=== PATIENT | female | born 1955 | race Caucasian/White ===

== ENCOUNTER 2020-11-20 14:40 | Emergency (ER) | payer OTHER, SELFPAY ==
[2020-11-20 15:07] VITALS: BP 123/61; PULSE 88; RESP 18; TEMP 36.3; O2SAT 99; BMI 24.0
[2020-11-20 15:15] LABS: Add Manual Diff / Slide Review NO; Basophils Absolute Auto 100 /uL (0-100); Basophils Percent Auto 0.6 % (0-2); Eosinophils Absolute Auto 0 /uL (0-450); Eosinophils Percent Auto 0.2 % (2-4); Hemoglobin 12.6 g/dL (12.0-16.0); Lymphocytes Absolute Auto 1600 /uL (1100-4500); Lymphocytes Percent Auto 16.5 % (25-40); Mean Corpuscular HGB Conc 34.1 % (30-36); Mean Corpuscular Hemoglobin 32.1 PG (26-34); Mean Corpuscular Volume 94.3 fL (80-100); Monocytes Absolute Auto 400 /uL (0-900); Neutrophils Absolute Auto 7900 /uL (1500-7000); Neutrophils Percent Auto 78.7 % (50-75); Platelet Count 228 X10^3/uL (150-400); Red Blood Cell Count 3.92 X10^6/uL (4.0-5.2); Red Cell Distribution Width 12.9 % (11.6-14.8)
[2020-11-20 15:20] LABS: INR 1.2 (0.9-1.3); Prothrombin Time 13.9 SECONDS (10.1-12.7)
[2020-11-20 15:23] LABS: Alanine Aminotransferase 23 IU/L (<35); Albumin 4.3 g/dL (3.5-5.0); Albumin Globulin Ratio 1.3 (1.0-2.8); Alkaline Phosphatase 64 U/L (38-126); Aspartate Aminotransferase 33 IU/L (14-36); Bilirubin Total 0.6 mg/dL (0.2-1.3); Blood Urea Nitrogen 13 mg/dL (7-17); Calcium 9.3 mg/dL (8.4-10.2); Carbon Dioxide 29 mmol/L (22-32); Chloride 105 mmol/L (98-107); Estimated Glomerular Filt Rate > 60.0 mL/min (>60); Globulin 3.3 g/dL (1.7-4.1); Glucose 153 mg/dL (80-110); HEMOLYSIS < 15 (0-50); Lipase 75 U/L (23-300); PTT Partial Thromboplastin Tim 32 SECONDS (26.4-36.2); Potassium 3.6 mmol/L (3.4-5.1); Sodium 138 mmol/L (137-145); Total Protein 7.6 g/dL (6.3-8.2)
[2020-11-20] MEDS: SODIUM CHLORIDE 0.9% 1,000 ML 1000 ML IV (15:43)
--- NOTE | 2020-11-20 16:04 | ED_ITS ---
HPI - Abdominal Pain General Chief Complaint: Abdominal Pain Stated Complaint: dizzy/throwing up Time Seen by Provider: 11/20/20 16:04 Source: patient and family () Mode of arrival: Ambulatory Limitations: no limitations History of Present Illness HPI narrative: This is a 65-year-old female who developed dizziness which she describes as the ground and room spinning acutely at about 5:00 p.m. yesterday. She states this occurred while she was taking a walk with her granddaughter. She continued to have episodes she developed nausea and vomiting overnight. She states when she would lay down she would often wake up with the room spinning. His proved somewhat today still present. She does notice some change with movement of her head side to side. She has not had any prior episodes in the past she denies headache, no vision changes no facial droop or dysarthria, no issues with speech. No numbness, new weakness or loss of sensation or extremities. She has chronic tingling in her right foot but no new changes. She states the tingling is secondary to prior knee and hip injuries. 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 This was performed at [facility]. Patient denies fevers, chills, no chest pain or shortness of breath, patient denies any urinary symptoms. She had some loose stools overnight but no diarrhea. She denies other medical issues she has not any medications currently. Early other prior surgeries for deviated septum. She is allergic to codeine. No tobacco cage in all alcohol and no illicit. Her primary care is at the Dr. Dominic Newsome Related Data Home Medications Medication Instructions Recorded Confirmed fexofenadine #0 12/29/17 Previous Rx's Medication Instructions Recorded meclizine 25 mg PO TID PRN #14 tab 11/20/20 Allergies Allergy/AdvReac Type Severity Reaction Status Date / Time codeine [CODEINE] Allergy Mild HALLUCINATI Unverified 01/12/18 12:10 ONS Review of Systems Review of Systems ROS Unobtainable: All systems reviewed & are unremarkable except as noted in HPI and below Patient History Surgical History (Updated 11/20/20 @ 16:37 by Maria Eugenia Messina DO) H/O splenectomy Social History (Updated 11/20/20 @ 16:37 by Maria Eugenia Messina DO) Smoking Status: Never smoker alcohol intake: current Smoking Status: Never smoker Substance Use Type: does not use Exam Narrative Exam Narrative: GEN: well nourished, well appearing female, alert and oriented x 3, patient appears to be in mild distress. HEENT: Atraumatic, pupils are equal round reactive to light, extraocular movements are intact with no nystagmus on the EOMI appreciated, patient has very faint rotatory nystagmus on the left with Silex-Hallpike maneuver and mild symptoms, nares are clear, TMs are clear with no fluid, there is no conjunctival pallor. Throat is clear without any exudates, erythema, tonsillar enlargement or uvular deviation, no facial droop. HEART: Regular rate and rhythm without murmur, clicks, rubs. Pulses are equal in upper and lower extremities LUNGS:Lungs clear to auscultation, no wheezes, rales, crackles, chest moves symmetrically ABD:bowel sounds normal, soft, non-tender, no guarding, rebound, rigidity, no masses noted, no hepatosplenomegaly, nondistended, no bruit or pulsatile mass. :No CVA tenderness MSCL: Non-tender, no muscle atrophy, muscles strength 5/5 upper and lower extremities, full range of motion, normal gait NEURO:CN 2-12 intact, sensation normal, lqyzev-[id number] normal bilaterally, heel-edwards normal bilaterally. SKIN: no rash, no erythema or other skin changes noted. Initial Vital Signs Initial Vital Signs: Vital Signs Temperature 97.4 F L 11/20/20 15:07 Pulse Rate 88 11/20/20 15:07 Respiratory Rate 18 11/20/20 15:07 Blood Pressure 123/61 11/20/20 15:07 Pulse Oximetry 99 11/20/20 15:07 Scores NIH Stroke Scale Level of Conciousness: Alert, keenly responsive Ask month/age: Answers both questions correctly. Open/close eyes, close hand: Performs both tasks correctly Best gaze horizontal: Normal Visual conti: No visual loss Facial palsy: Normal symetrical movement Left arm drift: No drift for full 10 sec Right arm drift: No drift for full 10 sec Left leg drift: No drift for full 5 sec Right leg drift: No drift for full 5 sec Limb ataxia: Absent Sensory on face/arms/legs: Normal, no sensory loss Best language: No aphasia, normal Dysarthria: Normal Extinction or inattention: No abnormality Total NIH Stroke scale score: 0 Course Orders Ordered: ED Orders 11/20/20 14:55 EKG-12 Lead Stat 11/20/20 15:00 Complete Blood Count AUTO DIFF Stat Comprehensive Metabolic Panel Stat Lipase Stat Partial Thromboplastin Time Stat Prothrombin Time INR Stat 11/20/20 16:32 CT angio head and neck Stat US abdomen complete Stat Discontinued Medications Sodium Chloride (Normal Saline 0.9%) 1,000 mls @ 1,000 mls/hr IV BOLUS ONE Stop: 11/20/20 16:27 Last Infusion: 11/20/20 16:39 Dose: 0 mls/hr Documented by: Admin: 11/20/20 15:43 Dose: 1,000 mls/hr Documented by: GRETCHEN Meclizine HCl (Meclizine Hcl 12.5 Mg Tablet) 50 mg PO NOW ONE Stop: 11/20/20 16:34 Last Admin: 11/20/20 16:57 Dose: 50 mg Documented by: GRETCHEN Ondansetron HCl (Ondansetron 4 Mg/2 Ml Inj) 4 mg IV NOW ONE Stop: 11/20/20 16:34 Last Admin: 11/20/20 16:42 Dose: 4 mg Documented by: GRETCHEN Reevaluation(s) Reevaluation #1: patient continues to feel better. reviewed labs, imaging and recommendations from neurology. Patient and both present. Time: 18:48 Consultations Consultation #1: Dr. Sharpe with neurology, reviewed imaging. Recommends follow up with nonemergent neurosurgery for aneurysm but feels unlikely cause of vertigo today. No neurologic symptoms otherwise with NIH of 0. Time: 18:40 Vital Signs Vital signs: Vital Signs - 8 hr 11/20/20 15:07 11/20/20 16:18 11/20/20 16:30 Temperature 97.4 F L Pulse Rate 88 77 79 Respiratory Rate 18 22 22 Blood Pressure 123/61 Pulse Oximetry 99 100 99 11/20/20 17:00 11/20/20 17:30 11/20/20 18:00 Temperature Pulse Rate 82 74 79 Respiratory Rate 22 11 L Blood Pressure 123/70 Pulse Oximetry 100 100 100 MDM - Abdominal Pain Lab Data Attestation: I reviewed the patient's lab results. Result diagrams: 11/20/20 15:00 11/20/20 15:00 Labs: Lab Results 11/20/20 11/20/20 11/20/20 Range/Units 15:00 15:00 15:00 WBC 10.0 (4.5-11.0) X10^3/uL RBC 3.92 L (4.0-5.2) X10^6/uL Hgb 12.6 (12.0-16.0) g/dL Hct 37.0 (36-46) % MCV 94.3 (80-100) fL MCH 32.1 (26-34) PG MCHC 34.1 (30-36) % RDW 12.9 (11.6-14.8) % Plt Count 228 (150-400) X10^3/uL Neut % (Auto) 78.7 H (50-75) % Lymph % (Auto) 16.5 L (25-40) % [place] % (Auto) 4.0 (3-14) % Eos % (Auto) 0.2 L (2-4) % Baso % (Auto) 0.6 (0-2) % Neut # (Auto) 7900 H (8227-8970) /uL Lymph # (Auto) 1600 (7514-5555) /uL [place] # (Auto) 400 (0-900) /uL Eos # (Auto) 0 (0-450) /uL Baso # (Auto) 100 (0-100) /uL PT 13.9 H (10.1-12.7) SECONDS INR 1.2 (0.9-1.3) APTT 32 (26.4-36.2) SECONDS Sodium 138 (137-145) mmol/L Potassium 3.6 (3.4-5.1) mmol/L Chloride 105 (98-107) mmol/L Carbon Dioxide 29 (22-32) mmol/L BUN 13 (7-17) mg/dL Creatinine 0.62 (0.52-1.04) mg/dL Estimated GFR > 60.0 (>60) mL/min BUN/Creatinine Ratio 21.0 (6-22) Glucose 153 H (80-110) mg/dL Calcium 9.3 (8.4-10.2) mg/dL Total Bilirubin 0.6 (0.2-1.3) mg/dL AST 33 (14-36) IU/L ALT 23 (<35) IU/L Alkaline Phosphatase 64 (38-126) U/L Total Protein 7.6 (6.3-8.2) g/dL Albumin 4.3 (3.5-5.0) g/dL Globulin 3.3 (1.7-4.1) g/dL Albumin/Globulin Ratio 1.3 (1.0-2.8) Lipase 75 (23-300) U/L Point of care testing: Urine Dip Bedside Urine Glucose Negative Bedside Urine Bilirubin - Negative Bedside Urine Ketone - Negative Urine Specific [place] 1.010 Bedside Urine Occult Blood - Negative Bedside Urine Protein - Negative Bedside Urine Urobilinogen - Negative Bedside Urine Nitrite - Negative Bedside Urine Leukocytes - Negative Esterase Imaging Data US - abdomen: Radiologist's Impression: [address] [id number] ReportSigned Patient: Emmy Tran [facility]#: [id number]: 1955cct:[id number]/Sex: 65 / FDate of Service: 11/20/20Loc: EDAccession Number: [id number] Procedure: US abdomen complete Ordering Provider: Maria Eugenia Messina D.O. PROCEDURE: US ABDOMEN COMPLETE INDICATIONS: abdominal pain, vomiting, hx of pancreatic tumor TECHNIQUE: Real-time scanning was performed of the abdominal and retroperitoneal organs, with image documentation. COMPARISON: [facility], CT, CT ANGIO HEAD AND NECK, 11/20/2020, 16:37. FINDINGS: Liver: Liver is normal in size and homogeneous in echotexture. Normal appearing, hepatopetal flow can be seen within the main portal vein. Gallbladder: No findings of gallstones or sludge are seen. The gallbladder wall is not thickened, measuring 3 mm or less. No specific pericholecystic fluid is seen. The sonographic Kapadia sign is negative. Biliary ducts: Intrahepatic bile ducts are non-dilated. Extrahepatic bile duct caliber measures 2-3 mm. Normal is 6-7 mm or less in diameter, or 10 mm or less post-cholecystectomy. Pancreas: Not well seen. Spleen: The spleen is small in size measuring 4.6 cm. Kidneys: Kidneys are normal in size and echotexture. Right kidney measures 11.5 cm long; left kidney measures 11.7 cm long. No hydronephrosis or nephrolithiasis. No solid masses. Aorta: Visualized aorta is normal in caliber at less than 3 cm. Iliacs: Proximal common iliac arteries are normal in caliber at less than 2.5 cm. IVC: Intrahepatic inferior vena cava is patent. Miscellaneous: No free abdominal fluid. IMPRESSION: Poor visualization of the pancreas. The gallbladder demonstrates a normal sonographic appearance. No biliary dilatation is seen. Dictated by: Rocky Alfaro M.D. on 11/20/2020 at 17:25 Approved by: Rocky Alfaro M.D. on 11/20/2020 at 17: CTA - brain/neck: Radiologist's Impression: [address] [id number] Scan ReportSigned Patient: Emmy Tran MMR#: [id number]: 1955cct:[id number]/Sex: 65 / FDate of Service: 11/20/20Loc: EDAccession Number: [id number] Procedure: CT angio head and neck Ordering Provider: Maria Eugenia Messina D.O. PROCEDURE: CT ANGIO HEAD AND NECK INDICATIONS: acute onset vertigo yesterday TECHNIQUE: Pre -contrast 4.5 mm thick sections acquired from the foramen magnum to the vertex. After the administration of intravenous contrast, 1 mm thick sections acquired from the aortic arch through the [place] of [place]. Post-contrast 4.5 mm thick sections then re-acquired from the foramen magnum to the vertex. 3-dimensional dympyju-gndezfitp-wrcqxnxqok (MIP) and/or volume rendering reformats were acquired of the central intracranial vasculature and neck separately. COMPARISON: None. FINDINGS: Image quality: Excellent. BRAIN: CSF spaces: Ventricles are normal in size and shape. Basal cisterns are patent. No extra-axial fluid collections. Brain: No midline shift. No acute intracranial hemorrhage or mass effect. Recio-white matter interface appears intact. Skull and face: Calvarium and facial bones appear intact, without suspicious lesions. Orbits appear normal. Sinuses: Sinuses and mastoids are clear. HEAD CT ANGIOGRAPHY: Anterior circulation: Mild atherosclerotic calcifications are seen in the intracranial portions of the internal carotid arteries bilaterally without hemodynamically significant stenosis. There is a 5 x 6 x 5 mm aneurysm in the supraclinoid portion of the left ICA directed posteriorly (image 68 of series 18 and image 78 of series 9). There is a suspected tiny 2 mm aneurysm arising from the right supraclinoid ICA directed posterior medially (image 80 of series 9, and image 84 series 18). The flow within the paired anterior cerebral arteries is normal and symmetric. The flow within the middle cerebral arteries is normal and symmetric. The anterior communicating artery is seen. Posterior circulation: Visualized portions of the vertebral arteries demonstrate normal caliber, and join to form a normal appearing basilar artery. Diminutive P1 segments of the posterior cerebral arteries are seen bilaterally with large posterior communicating arteries on both sides. Flow within the posterior cerebral arteries is normal and symmetric. No aneurysms are seen. NECK CT ANGIOGRAPHY: Carotid system: The great vessels demonstrate a conventional anatomy as they arise from the aortic arch. The origins of the common carotid arteries appear patent. The common carotid arteries demonstrate normal caliber and courses. The bifurcation regions are both widely patent. The internal carotid arteries demonstrate normal calibers and courses. Posterior circulation: The origins of the vertebral arteries both appear widely patent. The more superior extracranial portions of both vertebral arteries also demonstrate normal courses and calibers. They join to form a normal appearing basilar artery. Soft tissues: A 1.3 cm nodule is seen in the left lobe of the thyroid. Visualized neck soft tissues otherwise demonstrate no suspicious abnormalities. Bones: No suspicious bony lesions. Visualized cervical spine appears normally aligned. IMPRESSION: 1. No acute intracranial hemorrhage or focal edema. 2. No hemodynamically significant arterial stenosis or occlusion. 3. Left supraclinoid ICA 5 mm aneurysm. 4. Suspected 2 mm aneurysm arising from the right supraclinoid ICA. Any quantitative measurements of stenosis were performed using NASCET criteria. Dictated by: Eusebio Landon M.D. on 11/20/2020 at 17:08 Approved by: Eusebio Landon M.D. on 11/20/2020 at 17:23 ECG Data Attestation: I personally reviewed and interpreted this ECG as follows: Interpretation: Sinus rhythm with sinus arrhythmia, rate 84 P are 154 QRS is 74 and QTC of 460. New ST elevation depression appreciated. MDM Narrative Medical decision making narrative: This is a 65-year-old female comes emergency department with vertigo like symptoms that started yesterday afternoon/evening while she was out for a walk with her granddaughter. Patient's neurologic exam is normal. She does have some very subtle rotatory nystagmus but this is quite subtle on the left side. CT imaging was obtained she has also had some nausea and vomiting overnight developed a little bit of abdominal pain with a history of pancreatic tumor. Patient's labs do not show acute changes that would describe the cause of her symptoms. Her abdominal imaging visualization of the pancreas but no other concerning changes and no masses appreciated on imaging. CTA is significant for a 5 mm aneurysm at the left supraclinoid ICA and a suspected 2 mm aneurysm from the right supraclinoid ICA there is no sign of acute hemorrhage, focal edema, arterial stenosis or occlusion. Suspect this may be an incidental finding but was discussed with Neurology is a potential source of her vertigo. [place] that this was unlikely cause and not felt to need emergent intervetion of aneurysm. We did discuss possibility of stroke but this also seems less likely with an otherwise normal neurologic exam which was the reason why CT angiography was initially ordered. Discussed at length with patient and her recommended follow-up with neuro surgery for evaluation and intervention as needed. We did discuss return precautions and patient is to have a low threshold. Did ask her to have short-term follow-up with her primary care. All questions were answered. Patient was also given a disc with her CTA images for follow up. Discharge Plan Departure Patient Disposition: Home Clinical Impression: Vertigo, Aneurysm Instructions: DI for Vertigo Activity Restrictions/Additional Instructions: Follow-up with your physician next 2-3 days for recheck. Call in the morning for follow up. Your imaging today did show a aneurysm that is 5 mm and a 2nd possible aneurysm that is 2 mm at the left and right supraclinoid ICA. These should be followed up with neurosurgery they may wish to monitor them versus repair/intervene. I did discuss your findings today with Neurology and it is felt this is not a likely cause of your vertigo today and is likely a incidental finding. You have been given a CD with your CT angiogram images on it, keep this with you and take to future appointments. If you continue to have vertigo symptoms but they are mild to moderate you can follow-up with ENT. You may take meclizine 1-2 tablets every 8 hours as needed for vertigo symptoms. If you develop fevers, sudden severe headaches, vision changes, difficulty with speech, movement, facial droop, passing out, persistent vomiting or other new or concerning symptoms return to the emergency department immediately. Prescriptions: New meclizine 25 mg tablet,chewable 25 mg PO TID PRN (Reason: motion sickness) Qty: 14 RF: 0 No Action fexofenadine 180 MG tablet Qty: 0 RF: 0 Referrals: Laureen Acuna MD [Primary Care Provider] -
[2020-11-20 16:18] VITALS: PULSE 77; RESP 22; O2SAT 100
[2020-11-20 16:30] VITALS: PULSE 79; RESP 22; O2SAT 99
--- NOTE | 2020-11-20 16:32 | DI.US.S_ITS ---
PROCEDURE: US ABDOMEN COMPLETE INDICATIONS: abdominal pain, vomiting, hx of pancreatic tumor TECHNIQUE: Real-time scanning was performed of the abdominal and retroperitoneal organs, with image documentation. COMPARISON: [facility], CT, CT ANGIO HEAD AND NECK, 11/20/2020, 16:37. FINDINGS: Liver: Liver is normal in size and homogeneous in echotexture. Normal appearing, hepatopetal flow can be seen within the main portal vein. Gallbladder: No findings of gallstones or sludge are seen. The gallbladder wall is not thickened, measuring 3 mm or less. No specific pericholecystic fluid is seen. The sonographic Kapadia sign is negative. Biliary ducts: Intrahepatic bile ducts are non-dilated. Extrahepatic bile duct caliber measures 2-3 mm. Normal is 6-7 mm or less in diameter, or 10 mm or less post-cholecystectomy. Pancreas: Not well seen. Spleen: The spleen is small in size measuring 4.6 cm. Kidneys: Kidneys are normal in size and echotexture. Right kidney measures 11.5 cm long; left kidney measures 11.7 cm long. No hydronephrosis or nephrolithiasis. No solid masses. Aorta: Visualized aorta is normal in caliber at less than 3 cm. Iliacs: Proximal common iliac arteries are normal in caliber at less than 2.5 cm. IVC: Intrahepatic inferior vena cava is patent. Miscellaneous: No free abdominal fluid. IMPRESSION: Poor visualization of the pancreas. The gallbladder demonstrates a normal sonographic appearance. No biliary dilatation is seen. Dictated by: Rocky Alfaro M.D. on 11/20/2020 at 17:25 Approved by: Rocky Alfaro M.D. on 11/20/2020 at 17:26
--- NOTE | 2020-11-20 16:32 | DI.CT.S_ITS ---
PROCEDURE: CT ANGIO HEAD AND NECK INDICATIONS: acute onset vertigo yesterday TECHNIQUE: Pre -contrast 4.5 mm thick sections acquired from the foramen magnum to the vertex. After the administration of intravenous contrast, 1 mm thick sections acquired from the aortic arch through the [place] of [place]. Post-contrast 4.5 mm thick sections then re-acquired from the foramen magnum to the vertex. 3-dimensional qeszyyj-pamvohxzv-iccjqgxizu (MIP) and/or volume rendering reformats were acquired of the central intracranial vasculature and neck separately. COMPARISON: None. FINDINGS: Image quality: Excellent. BRAIN: CSF spaces: Ventricles are normal in size and shape. Basal cisterns are patent. No extra-axial fluid collections. Brain: No midline shift. No acute intracranial hemorrhage or mass effect. Recio-white matter interface appears intact. Skull and face: Calvarium and facial bones appear intact, without suspicious lesions. Orbits appear normal. Sinuses: Sinuses and mastoids are clear. HEAD CT ANGIOGRAPHY: Anterior circulation: Mild atherosclerotic calcifications are seen in the intracranial portions of the internal carotid arteries bilaterally without hemodynamically significant stenosis. There is a 5 x 6 x 5 mm aneurysm in the supraclinoid portion of the left ICA directed posteriorly (image 68 of series 18 and image 78 of series 9). There is a suspected tiny 2 mm aneurysm arising from the right supraclinoid ICA directed posterior medially (image 80 of series 9, and image 84 series 18). The flow within the paired anterior cerebral arteries is normal and symmetric. The flow within the middle cerebral arteries is normal and symmetric. The anterior communicating artery is seen. Posterior circulation: Visualized portions of the vertebral arteries demonstrate normal caliber, and join to form a normal appearing basilar artery. Diminutive P1 segments of the posterior cerebral arteries are seen bilaterally with large posterior communicating arteries on both sides. Flow within the posterior cerebral arteries is normal and symmetric. No aneurysms are seen. NECK CT ANGIOGRAPHY: Carotid system: The great vessels demonstrate a conventional anatomy as they arise from the aortic arch. The origins of the common carotid arteries appear patent. The common carotid arteries demonstrate normal caliber and courses. The bifurcation regions are both widely patent. The internal carotid arteries demonstrate normal calibers and courses. Posterior circulation: The origins of the vertebral arteries both appear widely patent. The more superior extracranial portions of both vertebral arteries also demonstrate normal courses and calibers. They join to form a normal appearing basilar artery. Soft tissues: A 1.3 cm nodule is seen in the left lobe of the thyroid. Visualized neck soft tissues otherwise demonstrate no suspicious abnormalities. Bones: No suspicious bony lesions. Visualized cervical spine appears normally aligned. IMPRESSION: 1. No acute intracranial hemorrhage or focal edema. 2. No hemodynamically significant arterial stenosis or occlusion. 3. Left supraclinoid ICA 5 mm aneurysm. 4. Suspected 2 mm aneurysm arising from the right supraclinoid ICA. Any quantitative measurements of stenosis were performed using NASCET criteria. Dictated by: Euesbio Landon M.D. on 11/20/2020 at 17:08 Approved by: Eusebio Landon M.D. on 11/20/2020 at 17:23
[2020-11-20] MEDS: ONDANSETRON 4 MG/2 ML INJ IV (16:42)
[2020-11-20] MEDS: MECLIZINE HCL 12.5 MG TABLET 50 MG PO (16:57)
[2020-11-20 17:00] VITALS: PULSE 82; RESP 22; O2SAT 100
[2020-11-20 17:30] VITALS: PULSE 74; O2SAT 100
[2020-11-20 18:00] VITALS: BP 123/70; PULSE 79; RESP 11; O2SAT 100
== END 2020-11-20 18:57 | disposition home or self-care (01) ==
PROVIDERS: Emergency Provider Emergency Medicine; Family Provider Internal Medicine; PCP Internal Medicine
DX: I67.1 Cerebral aneurysm, nonruptured (principal); R42 Dizziness and giddiness; R11.2 Nausea with vomiting, unspecified; R10.9 Unspecified abdominal pain
CPT/HCPCS: 36415; 70496; 70498; 76700; 80053; 81003; 83690; 85025; 85610; 85730; 93005; 93010; 96361; 96374; 99284; J2405; Q9967

== ENCOUNTER → 2020-12-20 10:57 | Outpatient (CLI) | payer OTHER, SELFPAY ==
--- NOTE | 2020-12-20 | DI.MG.S_ITS ---
BILATERAL DIGITAL SCREENING MAMMOGRAM 3D/2D WITH CAD: 12/20/2020 CLINICAL: Routine screening. Comparison is made to exams dated: 07/14/2016 mammogram, 08/09/2017 mammogram, and 08/30/2018 mammogram - [facility]. There are scattered fibroglandular elements in both breasts. Current study was also evaluated with a Computer Aided Detection (CAD) system. No significant masses, calcifications, or other findings are seen in either breast. There has been no significant interval change. IMPRESSION: NEGATIVE There is no mammographic evidence of malignancy. A 1 year screening mammogram is recommended. This exam was interpreted at Station ID: [id number]. NOTE: For mammograms, a report in lay terms will be sent to the patient. Approximately 15% of breast malignancies will not be visualized mammographically. In the management of a palpable breast mass, a negative mammogram must not discourage biopsy of a clinically suspicious lesion. Electronically Signed By: Go Lares M.D., jr/lavonne:12/20/2020 11:19:18 letter sent: Normal Exam ACR BI-RADS Category 1: Negative [id number]
== END ==
PROVIDERS: Family Provider Internal Medicine; PCP Internal Medicine; Referring Provider Internal Medicine; Visit Provider Internal Medicine
DX: Z12.31 Encounter for screening mammogram for malignant neoplasm of breast (principal)
CPT/HCPCS: 77063; 77067

== ENCOUNTER → 2021-03-29 10:11 | Outpatient (CLI) | payer OTHER, SELFPAY ==
[2021-03-29 11:49] LABS: COVID-19 CEPHEID PCR (VTM/NP) Negative (Negative)
== END ==
PROVIDERS: Family Provider Internal Medicine; PCP Internal Medicine; Referring Provider Physician Assistant; Visit Provider Physician Assistant
DX: Z20.822 Contact with and (suspected) exposure to COVID-19 (principal)
CPT/HCPCS: U0003

== ENCOUNTER → 2021-04-19 10:25 | Outpatient (CLI) | payer OTHER, SELFPAY ==
[2021-04-19 12:29] LABS: COVID19 - ADMIT (NP swab/PCR) Negative (Negative)
== END ==
PROVIDERS: Family Provider Internal Medicine; PCP Internal Medicine; Visit Provider Physician Assistant
DX: Z20.822 Contact with and (suspected) exposure to COVID-19 (principal)
CPT/HCPCS: U0003

== ENCOUNTER → 2022-03-20 09:37 | Outpatient (CLI) | payer OTHER, SELFPAY ==
--- NOTE | 2022-03-20 | DI.MRI.S_ITS ---
PROCEDURE: MR ANGIO HEAD WO CON INDICATIONS: Cerebral aneurysm, nonruptured TECHNIQUE: Noncontrast axial 3-D akuc-[id number]-[id number] MR angiogram, with 3-dimensional maximum intensity projection (MIP) reformats of the internal carotid arteries and posterior circulation then performed. COMPARISON: [facility], CT, CT ANGIO HEAD AND NECK, 11/20/2020, 16:37. FINDINGS: Image quality: Irregular artifact and signal dropout in the distal cavernous segments of both internal carotid arteries may be related to slow flow, [id number]-ce-[id number] artifact, or treatment related artifact, if any history exists Anterior circulation: Artifact in the cavernous ICA limits assessment. The previously described aneurysm in the left supraclinoid ICA is not well demonstrated on the current exam. 2 mm aneurysm in the right supraclinoid ICA is not demonstrated as well. Anterior and middle cerebral arteries unremarkable Posterior circulation: Visualized portions of the vertebral arteries demonstrate normal caliber, and join to form a normal appearing basilar artery. The flow within the posterior cerebral arteries is normal and symmetric. No stenoses, occlusions, or aneurysms. IMPRESSION: Limited exam related to artifact obscuring the anterior portions of both internal carotid arteries, possibly related to stenting or aneurysm coil, if any history exists. Consider follow-up CT angiogram Previously described aneurysms not currently visualized, given artifact Approved by: Luis Miguel Fong M.D. on 03/20/2022 at 11:19
== END ==
PROVIDERS: Family Provider Internal Medicine; PCP Internal Medicine; Referring Provider Psychiatry & Neurology Neurology; Visit Provider Psychiatry & Neurology Neurology
DX: I67.1 Cerebral aneurysm, nonruptured (principal)
CPT/HCPCS: 70544

== ENCOUNTER → 2022-10-23 07:50 | Outpatient (CLI) | payer MEDICARE, OTHER, SELFPAY ==
[2022-10-23 08:39] LABS: Add Manual Diff / Slide Review NO; Basophils Absolute Auto 100 /uL (0-100); Basophils Percent Auto 1.1 % (0-2); Eosinophils Absolute Auto 200 /uL (0-450); Eosinophils Percent Auto 2.8 % (2-4); Hematocrit 37.6 % (36-46); Hemoglobin 12.7 g/dL (12.0-16.0); Lymphocytes Absolute Auto 2200 /uL (1100-4500); Lymphocytes Percent Auto 38.4 % (25-40); Mean Corpuscular HGB Conc 33.7 % (30-36); Mean Corpuscular Hemoglobin 32.1 PG (26-34); Mean Corpuscular Volume 95.2 fL (80-100); Monocytes Absolute Auto 600 /uL (0-900); Neutrophils Absolute Auto 2800 /uL (1500-7000); Neutrophils Percent Auto 47.7 % (50-75); Platelet Count 270 X10^3/uL (150-400); Red Blood Cell Count 3.95 X10^6/uL (4.0-5.2); Red Cell Distribution Width 13.5 % (11.6-14.8); White Blood Cell Count 5.8 X10^3/uL (4.5-11.0)
[2022-10-23 09:04] LABS: HEMOLYSIS < 15 (0-50); Iron 134 ug/dL (37-170)
[2022-10-23 09:09] LABS: Alanine Aminotransferase 22 IU/L (<35); Alkaline Phosphatase 55 U/L (38-126); Aspartate Aminotransferase 30 IU/L (14-36); BUN Creatinine Ratio 20.5 (6-22); Bilirubin Total 0.9 mg/dL (0.2-1.3); Blood Urea Nitrogen 16 mg/dL (7-17); Carbon Dioxide 27 mmol/L (22-32); Chloride 104 mmol/L (98-107); Cholesterol 242 mg/dL (140-199); Estimated Glomerular Filt Rate > 60 mL/min (>60); Glucose 99 mg/dL (80-110); HDL Cholesterol 40 mg/dL (40-60); HEMOLYSIS < 15 (0-50); LDL Cholesterol Calculated 179 mg/dL (<100); Potassium 4.2 mmol/L (3.4-5.1); Sodium 140 mmol/L (137-145); Triglycerides 115 mg/dL (35-150)
[2022-10-23 09:16] LABS: Percent Iron Saturation 51 % (15-50); Total Iron Binding Capacity 262 ug/dL (265-497); Transferrin 204 mg/dL (206-381)
[2022-10-23 09:23] LABS: Free T3, Triiodothyronine Free 3.83 pg/mL (2.77-5.27); Free T4, Direct Thyroxine 0.93 ng/dL (0.78-2.19)
[2022-10-23 09:42] LABS: Ferritin 78 ng/mL (11-264)
[2022-10-23 09:57] LABS: HIV 1 & 2 Ab/Ag 4th Gen Combo NEGATIVE (NEGATIVE); Hep C Virus Ab w/Reflex Quant NEGATIVE s/c (NEGATIVE)
[2022-10-23 19:40] LABS: Albumin 4.1 g/dL (3.5-5.0); Albumin Globulin Ratio 1.1 (1.0-2.8); Globulin 3.9 g/dL (1.7-4.1)
[2022-10-24 08:08] LABS: Hepatitis BE Antigen Negative (Negative)
== END ==
PROVIDERS: Family Provider Internal Medicine; PCP Family Medicine; Referring Provider Family Medicine; Visit Provider Family Medicine
DX: R53.83 Other fatigue; L65.9 Nonscarring hair loss, unspecified; Z11.4 Encounter for screening for human immunodeficiency virus [HIV]; Z11.59 Encounter for screening for other viral diseases; Z13.220 Encounter for screening for lipoid disorders; Z90.81 Acquired absence of spleen; D64.9 Anemia, unspecified; E55.9 Vitamin D deficiency, unspecified; E78.5 Hyperlipidemia, unspecified
CPT/HCPCS: 36415; 80053; 80061; 82728; 83540; 83550; 84439; 84443; 84481; 85025; 86803; 87350; 87389

== ENCOUNTER → 2023-01-07 12:11 | Outpatient (CLI) | payer MEDICARE, OTHER, SELFPAY ==
--- NOTE | 2023-01-07 | DI.CT.S_ITS ---
PROCEDURE: CT SINUS SCREEN WO CON INDICATIONS: SINUSITIS/PANSINUSITIS TECHNIQUE: Noncontrast 3.0 mm axial images acquired from the frontal sinuses to the mid-sella, with coronal and sagittal reformats. For radiation dose reduction, the following was used: automated exposure control, adjustment of mA and/or kV according to patient size. COMPARISON: [facility], CT, CT ANGIO HEAD AND NECK, 11/20/2020, 16:37. [facility], MR, MR ANGIO HEAD WO CON, 03/20/2022, 9:51. FINDINGS: Image quality: The inferior-most aspect of the right maxillary sinus is not included within the field of view of this study. Maxillary Sinuses: No bony remodeling or destruction. There is minimal mucosal thickening seen involving the inferior maxillary sinuses. Ethmoid Air Cells: No bony remodeling or destruction. Sinuses are clear. Sphenoid Sinuses: No bony remodeling or destruction. Sinuses are clear. Frontal Sinuses: No bony remodeling or destruction. Sinuses are clear. Ostiomeatal Complexes: The ostiomeatal complexes are patent, yet they are constitutionally narrowed, with bilateral Doyle cells. Miscellaneous: Visualized intra-orbital contents are normal. There is a right-sided viry bullosa. There is mild leftward nasal septal deviation. Bilateral intracranial internal carotid artery stents are present. IMPRESSION: Minimal mucosal thickening is seen involving the inferior maxillary sinuses. The ostiomeatal complexes are patent, yet they are constitutionally narrowed, with bilateral Doyle cells. Additional findings: Bilateral intracranial internal carotid artery stents Right viry bullosa Mild rightward nasal septal deviation. (Please note that the inferior most aspect of the left maxillary sinus is not included within the field of view of this study. If it would be clinically helpful to image this area, please return this patient to Radiology for additional imaging, which would be performed at no additional charge to this patient. If additional imaging is performed, an addendum will be issued to this report.) Dictated by: Rocky Alfaro M.D. on 01/07/2023 at 12:26 Approved by: Rocky Alfaro M.D. on 01/07/2023 at 12:30
--- NOTE | 2023-01-07 12:13 | DI.MG.S_ITS ---
BILATERAL DIGITAL SCREENING MAMMOGRAM 3D/2D WITH CAD: 01/07/2023 CLINICAL: Routine screening. Comparison is made to exams dated: 12/20/2020 mammogram - [facility], 08/30/2018 mammogram, and 08/09/2017 mammogram - [facility]. There are scattered areas of fibroglandular density in both breasts (category b / 25%-50% glandular tissue). Current study was also evaluated with a Computer Aided Detection (CAD) system. No significant masses, calcifications, or other findings are seen in either breast. There has been no significant interval change. IMPRESSION: NEGATIVE There is no mammographic evidence of malignancy. A 1 year screening mammogram is recommended. Based on the Tyrer Cuzick model (a risk assessment model) the patient's lifetime risk is 6.7% and her 10 year risk is 3.2%. According to the ACR, ACS, and NCCN guidelines, an annual breast MRI exam along with mammogram is recommended if the patient's lifetime risk is 20% or greater. This exam was interpreted at Station ID: [id number]. NOTE: For mammograms, a report in lay terms will be sent to the patient. Approximately 15% of breast malignancies will not be visualized mammographically. In the management of a palpable breast mass, a negative mammogram must not discourage biopsy of a clinically suspicious lesion. Electronically Signed By: Nain wheat/lavonne:01/07/2023 15:59:17 letter sent: Normal Exam ACR BI-RADS Category 1: Negative 3341F
--- NOTE | 2023-01-07 12:48 | DI.DEXA.S_ITS ---
Bone Density Report Name: DOUG FALCON Age: 67 Sex: Female Ethnicity: White Date of : 1955 Indication: osteopenia; Referring Provider: RAINER KOCH Study: Bone densitometry was performed. Exam Date: January 07, 2023 Accession number: [id number] Bone Density: Region BMD T-score Z-score Classification AP Spine(L1, L3, L4) 0.710 -3.1 -1.3 Osteoporosis Femoral Neck (Left) 0.593 -2.3 -0.8 Osteopenia Total Hip (Left) 0.787 -1.3 0.0 Osteopenia Femoral Neck (Right) 0.588 -2.4 -0.8 Osteopenia Total Hip (Right) 0.767 -1.4 -0.2 Osteopenia Total Hip Mean 0.777 -1.4 -0.1 Osteopenia World Health Organization criteria for BMD impression classify patients as: Normal (T-score at or above -1.0), Osteopenia (T-score between -1.0 and -2.5), or Osteoporosis (T-score at or below -2.5). 10-year Fracture Risk: FRAX not reported because: Some T-score for Spine Total or Hip Total or Femoral Neck at or below -2.5 Previous Exams: -- Region Exam Age BMD T-score BMD Change BMD Change Date g/cm2 vs Baseline vs Previous -- AP Spine (L1,L3-L4) 01/07/2023 67 0.710 -3.1 -0.097 (-12.0%)# -0.097 (-12.0%)# 05/13/2015 59 0.807 -2.2 Total Hip(Left) 01/07/2023 67 0.787 -1.3 -0.084 (-9.7%)# -0.084 (-9.7%)# 05/13/2015 59 0.871 -0.6 Total Hip(Right) 01/07/2023 67 0.767 -1.4 -0.108 (-12.3%)# -0.108 (-12.3%)# 05/13/2015 59 0.875 -0.5 -- *Denotes significance at 95% confidence level, LSC for AP Spine = 0.022 g/cm2, LSC for Total Hip = 0.027 g/cm2 # Denotes dissimilar scan types or analysis methods Impression: The patient has osteoporosis, based on the Total Spine T-score. No significant bone loss was observed. Discussion: INCREASED RISK OF FRACTURE. BONE DENSITY IS UNDESIRABLY LOW AT ONE OR MORE SKELETAL SITES, CONSISTENT WITH POSTMENOPAUSAL OSTEOPOROSIS. This patient's lowest T-score meets the World Health Organization's (WHO) criteria for osteoporosis at one or more sites (T-score -2.5 or below). In untreated patients, the risk of osteoporotic fracture increases approximately two-fold for each 1.0 SD decrease in T-score. Low bone density is not the only risk factor for fracture; also consider factors such as patient's age, frailty or poor health, risk of falling, risk of injury, previous osteoporotic fracture, family history of osteoporosis, cigarette smoking, low body weight, etc. Not everyone with low bone mineral density has osteoporosis; osteomalacia and other metabolic bone disorders should also be considered. Patients who have osteoporosis should be evaluated for specific diseases and conditions (secondary causes) that may cause or contribute to bone loss. The [place] [employer] Clinical Endocrinologists (AACE) and National Osteoporosis Foundation (NOF) recommend pharmacologic intervention for all postmenopausal women whose T-score is in this range. The patient should follow a healthful lifestyle (good nutrition with adequate calcium and vitamin D, and appropriate weight-bearing exercise). Follow-Up: Consider a repeat BMD and Vertebral Fracture Assessment (VFA) exam in 2 years or sooner if medically necessary, to reassess this patient's status. Reported by: KATIE JERRY M.D. on 01/07/2023 1:06:00 PM.
== END ==
PROVIDERS: Family Provider Internal Medicine; PCP Family Medicine; Referring Provider Family Medicine; Visit Provider Family Medicine
DX: Z12.31 Encounter for screening mammogram for malignant neoplasm of breast (principal); J01.91 Acute recurrent sinusitis, unspecified; J32.4 Chronic pansinusitis; J34.2 Deviated nasal septum; J34.3 Hypertrophy of nasal turbinates; M81.0 Age-related osteoporosis without current pathological fracture; Z78.0 Asymptomatic menopausal state; Z95.828 Presence of other vascular implants and grafts; Z90.81 Acquired absence of spleen
CPT/HCPCS: 70486; 77063; 77067; 77080

== ENCOUNTER 2023-04-14 10:29 | Day surgery (SDC) | payer MEDICARE, OTHER, SELFPAY ==
--- NOTE | 2023-04-14 | PATH_ITS ---
[facility] Accession Number: [id number] No. of containers..02 Tissue . 01 Material submitted: . PART A: colon - CECUM PART B: colon - 60 . 01 Diagnosis: A. Cecum, Biopsy: Tubular adenoma. . B. Colon, 60, Biopsy: Colonic mucosa with mild active inflammation and reactive epithelial and stromal changes suggestive of healed/healing erosion. Additional levels were examined. Negative for dysplasia and malignancy. MRV 04/22/2023 1757 Local . 01 Electronically signed: . Marla Martinez MD, Pathologist NPI- [id number] . 01 Gross description: . Part A: CECUM: Received in formalin are 2 fragment(s) of cueto, soft tissue measuring 0.3 x 0.2 x 0.2 cm to 0.4 x 0.4 x 0.3 cm submitted entirely in 1 cassette(s) Part B: 60: Received in formalin is 1 fragment(s) of cueto, soft tissue measuring 0.3 x 0.3 x 0.3 cm submitted entirely in 1 cassette(s) /ASAF 04/19/2023 2258 Local . 01 Pathologist provided ICD-10: D12.0 . 01 CPT . 116738, 477690 Specimen Comment: A courtesy copy of this report has been sent to [phone] Performed at: 01 [facility] [address] [place] [address], [place], [place] [id number] MD Sheldon Lerner MD Phone: [phone]
[2023-04-14 11:09] VITALS: BP 115/73; PULSE 85; RESP 17; TEMP 36.7; O2SAT 99; BMI 24.0
[2023-04-14] MEDS: LACTATED RINGERS 1,000 ML 125 ML IV (11:28)
--- NOTE | 2023-04-14 11:41 | PM.HP.1 ---
History of Present Illness History of Present Illness Date Patient Seen: 04/14/23 Chief complaint: Dx Colonoscopy w/poss bx Narrative: History of colon polyps need for follow-up colonoscopy. 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 [facility] Medical History (Updated 01/19/23 @ 16:57 by Hyacinth Moreno DO) Acne Ankle pain (~2013) Chicken pox Hemorrhoid (~2021) Measles Pulmonary embolism (~2014) Rubella Surgical History (Updated 09/29/22 @ 18:13 by Natalya Vang) Anesthesia H/O splenectomy (~12/2013) History of colectomy (~2019) History of surgery Family History (Updated 09/29/22 @ 18:14 by Natalya Vang) Father Cancer Brother Cancer Brother Cancer Sister Cancer Social History (Updated 11/20/20 @ 16:37 by Maria Eugenia Messina DO) household members: spouse Smoking Status: Never smoker alcohol intake: current Meds Home Medications and Allergies Home Medications Medication Instructions Recorded Confirmed Type fexofenadine 180 mg tablet 180 mg PO DAILY ##0 12/29/17 04/14/23 History aspirin 81 mg tablet,delayed 81 mg PO DAILY #90 tabs 10/30/22 04/14/23 Rx release (Adult Low Dose Aspirin) fluticasone propionate 50 2 spray intranasal DAILY #16 grams 10/30/22 04/14/23 Rx mcg/actuation nasal spray,suspension levothyroxine 25 mcg tablet 25 mcg PO DAILY #90 tabs 10/30/22 04/14/23 Rx Allergies Allergy/AdvReac Type Severity Reaction Status Date / Time codeine [CODEINE] Allergy Mild HALLUCINATI Verified 09/30/22 11:19 ONS Exam Vital Signs (past 8 hours): - 04/14/23 11:09 Temperature 98.0 F Pulse Rate 85 Respiratory Rate 17 Blood Pressure 115/73 Pulse Oximetry 99 Oxygen Delivery Method Room Air Oxygen Delivery Method Room Air Narrative Exam Narrative: Oropharynx free of lesions Chest clear to auscultation percussion Cardiac exam reveals no S3 or murmur Assessment & Plan Assessment & Plan narrative: History of colon polyps need for follow-up colonoscopy. Risks, benefits, alternatives have been explained. Currently not on any anticoagulation other than a baby aspirin daily.
--- NOTE | 2023-04-14 11:43 | PM.OP.COLON ---
Operative Date/Time/Diagnoses Date of procedure: 04/14/23 Pre-op diagnosis: See indication and findings Procedure & Clinicians Study performed: Colonoscopy Indications: Personal history of colon polyps Surgeon: Olman Watkins Procedure Notes Procedure in detail: After informed consent was obtained the patient was placed in the left lateral decubitus position. Video colonoscope was introduced the rectum slowly advanced cecum. Preparation was good. On slow withdrawal mucosa was carefully examined. The scope was removed. The patient tolerated procedure well. Blood loss none Complications none Sedation mac Findings 1. 6 mm polyp just under the rim of the cecum cold snared removed completely 2. Need diminutive polyp at 60 cm with a white center. Jumbo biopsy removed completely 3. Colonic anastomosis at 35 cm appearing to be a [id number]-[id number]-sybu anastomosis. 4. Otherwise negative colonoscopy to cecum Will be in touch about the pathology which will help guide her follow-up colonoscopies in the future.
[2023-04-14 13:01] VITALS: BP 96/72; PULSE 74; RESP 14; TEMP 36.4; O2SAT 99
[2023-04-14 13:06] VITALS: BP 101/65; PULSE 71; RESP 12; O2SAT 97
[2023-04-14 13:10] VITALS: BP 108/66; PULSE 81; RESP 12; O2SAT 98
[2023-04-14 13:16] VITALS: BP 111/69; PULSE 80; RESP 16; O2SAT 100
[2023-04-14 13:19] VITALS: BP 111/64; PULSE 74; RESP 16; TEMP 36.4; O2SAT 100
== END 2023-04-14 13:35 | disposition home or self-care (01) ==
PROVIDERS: Family Provider Internal Medicine; PCP Family Medicine; Referring Provider Internal Medicine Gastroenterology; Visit Provider Internal Medicine Gastroenterology
PROC: 0DJD8ZZ Inspection of Lower Intestinal Tract, Via Natural or Artificial Opening Endoscopic (ICD-10-PCS; CPT 45378; principal; 2023-04-14 11:30)
DX: Z12.11 Encounter for screening for malignant neoplasm of colon (principal); D12.0 Benign neoplasm of cecum; Z86.010 Personal history of colon polyps
CPT/HCPCS: 45385; 45380; J2704

== ENCOUNTER → 2024-01-12 08:29 | Outpatient (CLI) | payer MEDICARE, OTHER, SELFPAY ==
--- NOTE | 2024-01-12 08:31 | DI.MG.S_ITS ---
BILATERAL DIGITAL SCREENING MAMMOGRAM 3D/2D WITH CAD: 01/12/2024 CLINICAL: Routine screening. Comparison is made to exams dated: 01/07/2023 mammogram, 12/20/2020 mammogram - [facility], and 08/30/2018 mammogram - [facility]. Both breasts are heterogeneously dense, which may obscure small masses (category c / 51-75% glandular tissue). Current study was also evaluated with a Computer Aided Detection (CAD) system. No significant masses, calcifications, or other findings are seen in either breast. There has been no significant interval change. IMPRESSION: NEGATIVE There is no mammographic evidence of malignancy. A 1 year screening mammogram is recommended. Based on the Tyrer Cuzick model (a risk assessment model) the patient's lifetime risk is 9.6% and her 10 year risk is 4.8%. According to the ACR, ACS, and NCCN guidelines, an annual breast MRI exam along with mammogram is recommended if the patient's lifetime risk is 20% or greater. This exam was interpreted at Station ID: [id number]. NOTE: For mammograms, a report in lay terms will be sent to the patient. Approximately 15% of breast malignancies will not be visualized mammographically. In the management of a palpable breast mass, a negative mammogram must not discourage biopsy of a clinically suspicious lesion. Electronically Signed By: Rica carney/lavonne:01/12/2024 17:11:46 letter sent: Normal Exam ACR BI-RADS Category 1: Negative 3341F
== END ==
LOC: MAMMO 08:30
PROVIDERS: Family Provider Internal Medicine; PCP Family Medicine; Referring Provider Family Medicine; Visit Provider Family Medicine
DX: Z12.31 Encounter for screening mammogram for malignant neoplasm of breast (principal); R92.333 Mammographic heterogeneous density, bilateral breasts
CPT/HCPCS: 77063; 77067

== ENCOUNTER → 2024-03-07 12:23 | Outpatient (CLI) | payer MEDICARE, OTHER, SELFPAY ==
[2024-03-07 13:55] LABS: BUN Creatinine Ratio 22.6 (6-22); Blood Urea Nitrogen 14 mg/dL (7-17); Calcium 8.7 mg/dL (8.4-10.2); Carbon Dioxide 24 mmol/L (22-32); Chloride 108 mmol/L (98-107); Estimated Glomerular Filt Rate > 60 mL/min (>60); Glucose 289 mg/dL (80-110); HEMOLYSIS < 15 (0-50); Potassium 4.3 mmol/L (3.4-5.1); Sodium 137 mmol/L (137-145)
== END ==
PROVIDERS: Family Provider Internal Medicine; PCP Family Medicine; Referring Provider Internal Medicine Rheumatology; Visit Provider Internal Medicine Rheumatology
DX: M81.0 Age-related osteoporosis without current pathological fracture (principal)
CPT/HCPCS: 36415; 80048

== ENCOUNTER → 2024-07-12 09:42 | Outpatient (CLI) | payer MEDICARE, OTHER, SELFPAY ==
--- NOTE | 2024-07-12 09:44 | DI.CT.S_ITS ---
PROCEDURE: CT SINUS SCREEN WO CON INDICATIONS: Otalgia of left ear TECHNIQUE: Noncontrast 3.0 mm axial images acquired from the frontal sinuses to the mid-sella, with coronal and sagittal reformats. For radiation dose reduction, the following was used: automated exposure control, adjustment of mA and/or kV according to patient size. COMPARISON: [facility], CT, CT SINUS SCREEN WO CON, 01/07/2023, 13:05. FINDINGS: Image quality: Excellent. Maxillary Sinuses: No bony remodeling or destruction. Minimal to mild mucosal thickening can be seen within the maxillary sinuses. Ethmoid Air Cells: No bony remodeling or destruction. Sinuses are clear. Sphenoid Sinuses: No bony remodeling or destruction. Sinuses are clear. Frontal Sinuses: No bony remodeling or destruction. Sinuses are clear. Ostiomeatal Complexes: The ostiomeatal complexes are patent, yet they are constitutionally narrowed, with bilateral Doyle cells. Miscellaneous: Visualized intra-orbital contents are normal. No viry bullosa or paradoxical turbinate curvature. There is minimal rightward nasal septal deviation. In this patient with this given history, scrutiny is given to the left ear. No abnormal fluid or soft tissue can be seen within the left middle ear cavity. No abnormal fluid is seen within the mastoid air cells on either side. No right ear abnormality is seen. To the limits of this study, no nasopharyngeal mass seen is seen. Bilateral intracranial internal carotid artery stents are seen. IMPRESSION: No imaging explanation is found for this patient's presenting symptoms. The left ear structures demonstrate no significant abnormality. No findings of mastoid air cell fluid are seen. Mild mucosal thickening can be seen within the maxillary sinuses. The ostiomeatal complexes are patent, yet they are constitutionally narrowed, with bilateral Doyle cells. Additional findings: Bilateral intracranial internal carotid artery stents A right-sided viry bullosa is seen, with opacification Minimal rightward nasal septal deviation Dictated by: Rocky Alfaro M.D. on 07/12/2024 at 10:01 Approved by: Rocky Alfaro M.D. on 07/12/2024 at 10:05
== END ==
LOC: CT 09:43
PROVIDERS: Family Provider Internal Medicine; PCP Family Medicine; Referring Provider Family Medicine; Visit Provider Family Medicine
DX: H92.02 Otalgia, left ear (principal)
CPT/HCPCS: 70486

== ENCOUNTER → 2024-08-09 12:04 | Outpatient (CLI) | payer MEDICARE, OTHER, SELFPAY ==
--- NOTE | 2024-08-09 12:06 | DI.US.S_ITS ---
PROCEDURE: US THYROID INDICATIONS: INTERMITTENT LUMPS LEFT WORSE THAN RIGHT. LEFT NECK PAIN. TECHNIQUE: Real-time scanning was performed of the thyroid gland, with image documentation. COMPARISON: None. FINDINGS: Thyroid: Right lobe measures 0.9 x 3.3 x 0.8 cm. Left lobe measures 1.6 x 3.3 x 1.5 cm. Isthmus is 0.2 cm thick. Echotexture is heterogenous. Posterior to the right thyroid lobe is seen a hypodense well-circumscribed 1.3 cm structure, favored to represent an enlarged parathyroid gland. Nodule number: 1 Location: Right lobe inferior pole Size: 1 cm. Composition: Solid Echogenicity: Hypoechoic Shape: Wider than tall Margins: Ill-defined Echogenic foci: With punctate echogenic foci Total points: 7 ACR TI-RADS category: T are 5, highly suspicious; recommend fine needle aspiration. Nodule number: 2 Location: Left lobe midpole Size: 1.7 cm. Composition: Mixed cystic and solid Echogenicity: Isoechoic Shape: Wider than tall Margins: Lobulated Echogenic foci: With punctate echogenic foci Total points: 7 ACR TI-RADS category: TR5, highly suspicious; recommend fine needle aspiration. IMPRESSION: 1. There is a 1.7 cm left thyroid lobe midpole mixed solid cystic lesion which is highly suspicious. Recommend fine needle aspiration. 2. There is a 1 cm right thyroid lobe inferior pole solid nodule which is highly suspicious. Recommend fine needle aspiration. 3. There is an enlarged right upper parathyroid gland measuring 1.3 cm. Dictated by: Sheldon Concepcion M.D. on 08/09/2024 at 16:18 Approved by: Sheldon Concepcion M.D. on 08/09/2024 at 16:27
== END ==
PROVIDERS: Family Provider Internal Medicine; PCP Family Medicine; Referring Provider Family Medicine; Visit Provider Family Medicine
DX: E04.2 Nontoxic multinodular goiter (principal); E21.0 Primary hyperparathyroidism; R59.9 Enlarged lymph nodes, unspecified
CPT/HCPCS: 76536

== ENCOUNTER → 2024-09-04 09:31 | Outpatient (CLI) | payer MEDICARE, OTHER, SELFPAY ==
--- NOTE | 2024-09-04 09:33 | DI.US.S_ITS ---
PROCEDURE: US FINE NEEDLE ASPIRATION INDICATIONS: thyroid nodules, US follow up TECHNIQUE: The indications, alternatives, benefits, risks, and complications of the procedure were explained to the patient. Written informed consent was obtained and placed in the chart. The thyroid region was examined sonographically and a site was chosen for ultrasound guided percutaneous sampling. The skin was prepared and draped in the usual fashion, and anesthetized with 1% lidocaine infiltrated from the skin down to the thyroid gland. Multiple passes were then performed, with contents emptied into an appropriate pathology specimen container. A bandage was applied to the area of access at completion of the study. COMPARISON: [facility], US, US THYROID, 08/09/2024, 12:21. FINDINGS: Location(s) of lesion(s) sampled: Right inferior 1 cm TR 5 nodule, left midpole 1.7 cm TR 5 nodule Mcmillan: 25 gauge hypodermic needles. Number of passes: 3 passes on the right (nodule was obscured after the initial 3 passes, precluding accurate targeting), 5 passes on the left Medications: 1% lidocaine for local anaesthesia. Complications: None. IMPRESSION: Successful ultrasound-guided thyroid nodule fine needle aspiration, with cytology results pending. Please see chart below for management recommendations based on cytology results. [facility] ReportingRecommendationsNon-diagnostic* Repeat US-guided FNA, with on-site cytology evaluation if possible. * Repeated non-diagnostic nodules without high suspicion US features: close observation vs surgical consult. * Consider surgery if nodule has high suspicion US features, grows >20% in 2 dimensions on followup, or patient has clinical risk factors for malignancy. Benign* If nodule has high suspicion US features: repeat US and FNA within 12 months. * If nodule has low to intermediate suspicion US features: repeat US at 12-24 months. If nodule grows (20% increase in at least 2 dimensions, with minimal increase of 2 mm or >50% change in volume), or development of new suspicious US features, then repeat FNA or continue followup. * If nodule has very low suspicion US features: followup US at >24 months. Atypia of undetermined significance, follicular lesion of undetermined significanceRepeat FNA, molecular testing, followup US, or surgical consult.Follicular neoplasm, suspicious for follicular neoplasmSurgical consult; also consider molecular testing. Suspicious for malignancySurgical consult.MalignantSurgical consult. Dictated by: Anderson Fan M.D. on 09/04/2024 at 13:00 Approved by: Anderson Fan M.D. on 09/04/2024 at 13:01
--- NOTE | 2024-09-04 11:14 | PATH_ITS ---
Note [facility] Accession Number: [id number] TESTS RESULT FLAG UNITS REF RANGE LAB Clinician Provided Cytology Information No. of containers..01 Other (Miscellaneous) No. of containers..06 Previously Prepared Cytology Slide Source: RIGHT THYROID NODULE #1 (A) DIAGNOSIS: RIGHT THYROID NODULE #1 (A), FINE NEEDLE ASPIRATION. INADEQUATE. SCANT COLLOID IS PRESENT. FOLLICULAR CELLS ARE NOT PRESENT. BETHESDA CATEGORY I. RE-ASPIRATION RECOMMENDED. 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 Signed out by: Miladis Sellers MD, Pathologist NPI- [id number] Performed by: James Tompkins, Sales Teacher ([facility]) Gross description: 30 CC, PINK, CLEAR RECIEVED: IN CYTOLYT WITH 3 ALCOHOL FIXED AND 3 QUICK STAINED SLIDES ALSO 1 RNA VIAL WILL ON 10-12-2024.VO /VDU 09/05/2024 0641 Local FLAG LEGEND: L-Low Normal,H-High Normal,LL-Alert Low,HH-Alert High <-Panic Low,>-Panic High,A-Abnormal,AA-Critical Abnormal Performed at: 01 =Z [facility] [address], [place] [address] Sheldon Lerner MD, Specimen Comment: [id number] Performed at: 01 [facility] [address] [address] [address] [facility], [place], [place] [id number] MD Sheldon Lerner MD Phone: [phone]
--- NOTE | 2024-09-04 11:15 | PATH_ITS ---
Note [facility] Accession Number: [id number] TESTS RESULT FLAG UNITS REF RANGE LAB Clinician Provided Cytology Information No. of containers..02 Other (Miscellaneous) 70 Unknown Storage/container code(s) Source: LEFT THYROID NODULE #3 (B) DIAGNOSIS: 01 LEFT THYROID NODULE #3 (B), FINE NEEDLE ASPIRATION. NEGATIVE FOR MALIGNANT CELLS. ADEQUATE FOR EVALUATION. FOLLICULAR GROUPS ARE PRESENT. FAVOR BENIGN FOLLICULAR (GOITEROUS) NODULE (BETHESDA CATEGORY II), SEE COMMENT. COMMENT: MICROSCOPIC EXAMINATION REVEALS A MILDLY CELLULAR ASPIRATE, COMPOSED OF FEW FOLLICULAR GROUPS (>6 GROUPS THAT ARE REQUIRED FOR ADEQUACY), ABUNDANT COLLOID AND NUMEROUS BACKGROUND MACROPHAGES. THESE FINDINGS FAVOR A BENIGN FOLLICULAR (GOITEROUS) NODULE. HOWEVER, SINCE THIS ASPIRATE IS MILDLY CELLULAR, IT MAY NOT BE CANOE INSPECTOR FINAL OF THE PATIENT'S LESION. CORRELATION WITH CLINICAL AND RADIOGRAPHIC FINDINGS IS RECOMMENDED TO ENSURE THAT THE LESION HAS BEEN ADEQUATELY SAMPLED. ACCORDING TO THE BETHESDA REPORTING SYSTEM FOR THYROID CYTOPATHOLOGY, THE RISK OF MALIGNANCY IN THE CATEGORY BENIGN-CATEGORY II IS 0-3%; THEREFORE RECOMMEND CONTINUED ULTRASOUND SURVEILLANCE WITH REPEAT FNA IF THE NODULE SIGNIFICANTLY INCREASES IN SIZE. Pathologist ICD10: 01 E04.2 Signed out by: Raymundo Sellers MD, Pathologist NPI- [id number] Performed by: Raymundo Abdalla, Foster Winder ([facility]) Gross description: 01 55 CC, PINK, CLEAR RECIEVED: IN ALCOHOL AND CYTOLYT WITH 4 ALCOHOL FIXED AND 4 QUICK STAINED SLIDES ALSO 1 RNA VIAL WILL ON 10-12-2024.VO /VDU 09/05/2024 1001 Local FLAG LEGEND: L-Low Normal,H-High Normal,LL-Alert Low,HH-Alert High <-Panic Low,>-Panic High,A-Abnormal,AA-Critical Abnormal Performed at: [address] [address], [place] [address] Sheldon Lerner MD, Specimen Comment: [id number] Performed at: [address] [address], [place], [place] [id number] MD Sheldon Lerner MD Phone: [phone]
== END ==
PROVIDERS: Family Provider Internal Medicine; PCP Family Medicine; Referring Provider Family Medicine; Visit Provider Family Medicine
DX: E21.4 Other specified disorders of parathyroid gland; E04.2 Nontoxic multinodular goiter
CPT/HCPCS: 10005; 10006

== ENCOUNTER → 2024-10-31 06:57 | Outpatient (CLI) | payer MEDICARE, OTHER, SELFPAY ==
--- NOTE | 2024-10-31 06:59 | DI.ECHO.S_ITS ---
[facility] : : [address] : : [place] : : [id number] : : Phone: [phone] Echocardiogram Report + + :Name: DOUG FALCON Study Date: 10/31/2024 Height: 64.5 in: :[facility] ReadingLocation: Weight: 143 lb : : Gender: Female BSA: 1.7 m2 : :: 1955 Age: 69 yrs BP: 125/83 mmHg: :Reason For Study: HEART MURMUR : :Ordering Physician: YAN, : :DANNY Alvarez Performed By: Marlene Neal : :Referring: DANNY HEREDIA : + + Interpretation Summary The ejection fraction is estimated to be 60-65%. Diastolic parameters suggest probable normal left ventricular diastolic function and normal filling pressures. The right ventricle is normal in size and function. There is mild mitral regurgitation. Pulmonary artery pressures cannot be estimated because of the lack of a measurable TR jet velocity but the IVC suggests a CVP of around 3 mmHg. Procedure: A two-dimensional transthoracic echocardiogram with color flow and Doppler was performed. The study quality was technically adequate. There is no prior echocardiogram noted for this patient. The patient was in sinus rhythm with heart rates between 72-77 bpm during the exam. Left Ventricle: The left ventricle is normal in size and wall thickness. The ejection fraction is estimated to be 60-65%. Diastolic parameters suggest probable normal left ventricular diastolic function and normal filling pressures. Right Ventricle: The right ventricle is normal in size and function. Atria: The left atrial size is normal. Right atrial size is normal. There is no Doppler evidence for an interatrial shunt. Mitral Valve: The mitral valve leaflets appear to open well. There is mild mitral regurgitation. Aortic Valve: The aortic valve is trileaflet. The aortic valve opens well. There is no aortic valve stenosis. No aortic regurgitation is present. Tricuspid Valve: The tricuspid valve leaflets are thin and pliable. There is trace tricuspid regurgitation. Pulmonary artery pressures cannot be estimated because of the lack of a measurable TR jet velocity but the IVC suggests a CVP of around 3 mmHg. Pulmonic Valve: The pulmonic valve leaflets are thin and pliable; valve motion is normal. There is no pulmonic valvular regurgitation. Great Vessels: The aortic root is normal size. The dimensions of the ascending aorta are normal. The IVC is of normal diameter and collapses greater than 50% with a sniff. This suggests a low right atrial pressure of 3 mm Hg. Pericardium/ Pleura There is no pericardial effusion. There is no pleural effusion. MMode/2D Measurements & Calculations LVIDd: 4.1 cm LVOT diam: 2.0 cm LVIDs: 2.5 cm Ao root diam: 2.7 cm FS: 37.3 % asc Aorta Diam: 2.9 cm IVSd: 0.95 cm Ao Arch Diam (Prox Trans): 2.7 cm LVPWd: 0.96 cm LV harmon. diameter/BSA (cm/m^2): 2.4 LV sys. diameter/BSA (cm/m^2): 1.5 LA A2 area: 17.3 cm2 RA long axis: 4.5 cm LA A4 area: 16.9 cm2 RA area: 12.8 cm2 LA length (vol): 4.7 cm RA vol: 31.3 ml LA vol: 52.9 ml RA : 18.4 ml/m2 LA vol index: 31.0 ml/m2 IVC diam: 1.1 cm RVD1 (basal): 4.1 cm RVD2 (mid): 2.9 cm TAPSE: 1.7 cm Doppler Measurements & Calculations Ao V2 max: 156.7 cm/sec LVOT Max Elder: 117.0 cm/sec Ao V2 mean: 112.5 cm/sec LV V1 max P.5 mmHg Ao max P.8 mmHg LV V1 VTI: 26.2 cm Ao mean P.5 mmHg AFIA(I,D): 2.4 cm2 Ao V2 VTI: 33.7 cm AFIA(V,D): 2.3 cm2 sev ratio: 0.78 AFIA indexed to BSA (cm^2/m^2): 1.4 MV E max elder: 91.3 cm/sec TR max elder: 221.1 cm/sec MV A max elder: 90.5 cm/sec TR max P.6 mmHg MV E/A: 1.0 PA V2 max: 107.6 cm/sec Med Peak E' Elder: 10.6 cm/sec PA V2 mean: 75.4 cm/sec E/E' med: 8.6 PA mean P.5 mmHg Lat Peak E' Elder: 11.6 cm/sec PA pr(Accel): 39.6 mmHg E/E' lat: 7.9 E/e' average: 8.2 MV dec time: 0.17 sec MVA(VTI): 3.1 cm2 Pulm A Revs Elder: 35.7 cm/sec MV V2 mean: 68.7 cm/sec Pulm A Revs Dur: 0.11 sec MV mean P.1 mmHg MV V2 VTI: 25.9 cm SV(LVOT): 81.5 ml Reading Physician:01:37 PM
--- NOTE | 2024-10-31 06:59 | DI.RAD.S_ITS ---
PROCEDURE: XR SHOULDER RT MIN 2V INDICATIONS: Right sided shoulder pain TECHNIQUE: 3 views of the shoulder were acquired. COMPARISON: None. FINDINGS: Bones: No fractures or dislocations. No suspicious bony lesions. Visualized ribs appear intact. Soft tissues: No suspicious soft tissue calcifications. IMPRESSION: No acute bony abnormality. Approved by: Luis Miguel Fong M.D. on 11/01/2024 at 15:12
[2024-10-31 07:52] LABS: Add Manual Diff / Slide Review NO; Basophils Absolute Auto 100 /uL (0-100); Basophils Percent Auto 1.5 % (0-2); Eosinophils Absolute Auto 200 /uL (0-450); Eosinophils Percent Auto 2.9 % (2-4); Hematocrit 38.2 % (36-46); Hemoglobin 12.9 g/dL (12.0-16.0); Lymphocytes Absolute Auto 2200 /uL (1100-4500); Lymphocytes Percent Auto 32.9 % (25-40); Mean Corpuscular HGB Conc 33.9 % (30-36); Mean Corpuscular Hemoglobin 32.4 PG (26-34); Mean Corpuscular Volume 95.6 fL (80-100); Monocytes Absolute Auto 600 /uL (0-900); Monocytes Percent Auto 8.7 % (3-14); Neutrophils Absolute Auto 3600 /uL (1500-7000); Platelet Count 267 X10^3/uL (150-400); Red Cell Distribution Width 13.1 % (11.6-14.8); White Blood Cell Count 6.7 X10^3/uL (4.5-11.0)
[2024-10-31 08:10] LABS: Alanine Aminotransferase 25 IU/L (<35); Albumin 4.3 g/dL (3.5-5.0); Albumin Globulin Ratio 1.4 (1.0-2.8); Alkaline Phosphatase 51 U/L (38-126); Aspartate Aminotransferase 40 IU/L (14-36); BUN Creatinine Ratio 19.4 (6-22); Bilirubin Total 1.1 mg/dL (0.2-1.3); Blood Urea Nitrogen 18 mg/dL (7-17); Calcium 9.3 mg/dL (8.4-10.2); Carbon Dioxide 25 mmol/L (22-32); Chloride 107 mmol/L (98-107); Cholesterol 262 mg/dL (140-199); Estimated Glomerular Filt Rate > 60 mL/min (>60); Glucose 104 mg/dL (80-110); HDL Cholesterol 53 mg/dL (40-60); HEMOLYSIS < 15 (0-50); LDL Cholesterol Calculated 191 mg/dL (<100); Potassium 3.9 mmol/L (3.4-5.1); Sodium 139 mmol/L (137-145); Total Protein 7.3 g/dL (6.3-8.2); Triglycerides 88 mg/dL (35-150)
[2024-10-31 08:40] LABS: TSH w/ Reflex to FT4 3.97 uIU/mL (0.47-4.68)
[2024-10-31 08:55] LABS: Hemoglobin A1C% w Est Avg Glu 5.9 % (4.0-6.0)
[2024-10-31 09:08] LABS: Vitamin D 25 Hydroxy (D3) 120 ng/mL (30.0-100.0)
[2024-11-01 10:10] LABS: Parathyroid Hormone Int 25 pg/mL (15-65)
== END ==
PROVIDERS: Family Provider Internal Medicine; PCP Family Medicine; Referring Provider Family Medicine; Visit Provider Family Medicine
DX: R01.1 Cardiac murmur, unspecified (principal); R73.09 Other abnormal glucose; I25.10 Atherosclerotic heart disease of native coronary artery without angina pectoris; E04.1 Nontoxic single thyroid nodule; M81.0 Age-related osteoporosis without current pathological fracture; E21.5 Disorder of parathyroid gland, unspecified; M25.511 Pain in right shoulder; I34.0 Nonrheumatic mitral (valve) insufficiency
CPT/HCPCS: 36415; 73030; 80053; 80061; 82306; 83036; 83970; 84443; 85025; 93306

== ENCOUNTER → 2024-12-08 14:35 | Outpatient (CLI) | payer MEDICARE, OTHER, SELFPAY ==
[2024-12-08 15:21] LABS: Influenza A - CEPHEID Flu A NEGATIVE (NEGATIVE); Influenza B - CEPHEID Flu B NEGATIVE (NEGATIVE); Respiratory Syncytial Virus Negative (Negative)
[2024-12-08 15:25] LABS: COVID-19 CEPHEID 4-PLEX PCR Negative (Negative)
== END ==
LOC: LAB 14:37
PROVIDERS: Family Provider Family Medicine; PCP Family Medicine; Visit Provider Nurse Practitioner Family
DX: R05.9 Cough, unspecified (principal); R50.9 Fever, unspecified
CPT/HCPCS: 0241U

== ENCOUNTER → 2024-12-08 14:41 | Outpatient (CLI) | payer MEDICARE, OTHER, SELFPAY ==
--- NOTE | 2024-12-08 14:42 | DI.RAD.S_ITS ---
PROCEDURE: XR CHEST 2V INDICATIONS: cough TECHNIQUE: 2 views of the chest were acquired. COMPARISON: None. FINDINGS: Surgical changes and devices: None. Lungs and pleura: Lungs are clear. No pleural effusions or pneumothorax. Mediastinum: Mediastinal contours are normal. Heart size is normal. Bones and chest wall: No suspicious bony abnormalities. Soft tissues appear unremarkable. IMPRESSION: No acute pulmonary process. Dictated by: Jyoti Sesay M.D. on 12/08/2024 at 16:19 Approved by: Jyoti Sesay M.D. on 12/08/2024 at 16:19
== END ==
PROVIDERS: Family Provider Family Medicine; PCP Family Medicine; Referring Provider Nurse Practitioner Family; Visit Provider Nurse Practitioner Family
DX: R05.9 Cough, unspecified (principal); R50.9 Fever, unspecified
CPT/HCPCS: 0241U; 71046

== ENCOUNTER → 2025-01-23 14:55 | Outpatient (CLI) | payer MEDICARE, OTHER, SELFPAY ==
--- NOTE | 2025-01-23 14:57 | DI.MG.S_ITS ---
MM screening mammo BI: 01/23/2025. BI-RADS: 0 CLINICAL: 69-year old female for bilateral screening mammogram. Tyrer-Cuzick lifetime risk of 6.1%. No personal or first-degree family history of breast cancer. PRIOR EXAMS 01/12/2024, 01/07/2023, 12/20/2020, 05/13/2015. MAMMOGRAPHY TECHNIQUE: 2D and 3D (tomosynthesis) digital mammographic views obtained, with additional images as needed for full coverage. Current study was also evaluated with a Computer Aided Detection (CAD) system. DENSITY C. The breasts are heterogeneously dense, which may obscure small masses. MAMMOGRAPHY FINDINGS Right: Upper Inner Quadrant, Middle depth: Focal asymmetry needing additional imaging evaluation. Left: No suspicious mass, asymmetry, microcalcification, or other abnormality seen. IMPRESSION: Right (Asymmetry): Upper Inner Quadrant, Middle depth * Incomplete - focal asymmetry needing additional imaging evaluation. Left * No evidence of malignancy. RECOMMENDATIONS Right: Upper Inner Quadrant, Middle depth * Further evaluation with diagnostic mammography and diagnostic ultrasound. Ultrasound to be performed only if needed. OVERALL ASSESSMENT CATEGORY BI-RADS-0: Incomplete - Need Additional Imaging Evaluation. ELECTRONICALLY SIGNED: Lucina Church M.D. on 01/24/2025 at 04:35:29 PM PT Interpreting Station ID: [id number]
--- NOTE | 2025-01-23 14:57 | DI.RAD.S_ITS ---
PROCEDURE: XR DEXA AXIAL SKELETON INDICATIONS: Osteoporosis COMPARISON: [facility], , XR DEXA AXIAL SKELETON, 01/07/2023, 12:48. [facility], CR, DEXA AXIAL SKELETON, 05/13/2015, 11:13. FINDINGS: Lumbar Spine: Bone mineral density 0.743 g/cm2, T score -2.8, previously -3.1. Left Femoral Neck: Bone mineral density 0.599 g/cm2, T score -2.3. Left Hip: Bone mineral density 0.827 g/cm2, T score -0.9, previously -1.3. Fracture Risk Calculation (when applicable): 10-year fracture risk of a major osteoporotic fracture 21 percent and of a hip fracture 3.7 percent. (T score greater or equal to -1.0 to: NORMAL) (T score from -1.1 to -2.4: OSTEOPENIA) (T score less than or equal to -2.5: OSTEOPOROSIS) IMPRESSION: 1. Osteoporosis of the lumbar spine. 2. Osteopenia of the left femoral neck, although borderline osteoporotic. 3. Normal bone density of the left hip, although borderline osteopenic. Follow-up guidelines as follows: Osteoporosis: Consider a repeat DEXA and Vertebral Fracture Assessment (VFA) exam in 2 years or sooner if medically necessary, to reassess this patient's status. Osteopenia: Consider a repeat DEXA in 2-3 years to reassess this patient's status, or if there is a new clinical indication. Normal: Consider a repeat DEXA in 5 years or sooner, or if there is a new clinical indication. All treatment decisions require clinical judgment and consideration of individual patient factors, including patient preferences, comorbidities, previous drug use, risk factors not captured in the FRAX model (e.g., frailty, falls, vitamin D deficiency, increased bone turnover, interval significant decline in bone density ) and possible under- or over-estimation of fracture risk by FRAX. In addition, the NOF Guide recommends that FDA-approved medical therapies be considered in postmenopausal women and men age >= 50 years with a: * Hip or vertebral (clinical or morphometric) fracture * T-score of <=-2.5 at the spine or hip * Ten-year fracture probability by FRAX of >= 3% for hip fracture or >=20% for major osteoporotic fracture. Dictated by: Anderson Fan M.D. on 01/23/2025 at 16:30 Approved by: Anderson Fan M.D. on 01/23/2025 at 16:32
== END ==
PROVIDERS: Family Provider Family Medicine; PCP Family Medicine; Referring Provider Family Medicine; Visit Provider Family Medicine
DX: R92.333 Mammographic heterogeneous density, bilateral breasts (principal); Z12.31 Encounter for screening mammogram for malignant neoplasm of breast; M81.0 Age-related osteoporosis without current pathological fracture
CPT/HCPCS: 77063; 77067; 77080

== ENCOUNTER 2025-01-30 13:00 | Outpatient (RCR) | payer MEDICARE, OTHER, SELFPAY ==
--- NOTE | 2024-12-05 13:27 | PT.OIE ---
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 Address: [address] [place] [address], [facility] Email: [email or web address] Physical Therapy Initial Evaluation PT-OP-A Visit Information Start: 12/03/24 08:46 Freq: Status: Active Protocol: Document 12/05/24 11:33 MB (Rec: 12/05/24 12:00 MB [id number]) Out-Patient Physical Therapy Visit Information Visit Information Visit Type Initial Evaluation Visit Note Medicare and [employer] Progress note by 01/05/25 Visit Start Time 11:33 Visit Stop Time 12:13 Visit Number 1 Number of OPTOMETRIST/PRACTICE OWNER Visits 0 Evaluation Information Evaluation Date 12/05/24 Precautions Precautions OP, orthostatic on eval PT-OP-B Current Condition Start: 12/03/24 08:46 Freq: Status: Active Protocol: Document 12/05/24 11:33 MB (Rec: 12/05/24 12:00 MB [id number]) Current Condition History of Current Condition Onset Date 11 years ago Current Complaints Right shoulder pain that wakes her up History of Current Condition Pt reports that 11 years ago this week, 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 She had tail of pancreas, spleen and 10 inches of colon also removed. She noticed her right shoulder was a problem at that time. Pt reports that she used to have a dog who also pulled on the leash and may have irritated her right shoulder. She is right handed. Pt reports right hip, knee and shoulder problem and plantar fasciitis on both feet. Pt reports history of 5 brain aneurysms and she had 2 brain stents in March of 2021 and April of 2021. She was dizzy beforehand. Pt uses lidocain patches on right arm. She sleeps on her side. Pt reports pain and tingling in right toe. Pt reports occ neck. Pt reports putting on bra and exercise bra in particular is challenging. She asks her a lot to open jars. Right reports occ numbness in right web of thumb/thenar eminence area. Treatment Goals Patient/Caregiver Goals To improve sleep and pain. PT-OP-C Subjective Start: 12/03/24 08:46 Freq: Status: Active Protocol: Document 12/05/24 11:33 MB (Rec: 12/05/24 12:00 MB [id number]) OP-PT Subjective Patient Comments Patient Comments See history of current condition Patient Questionnaires Quick Dash- Upper Extremity Quick Dash UE Score 25 Quick Dash UE Impairment 20 to 39% Impaired (Score 20- 39) PT-OP-J Posture/Palpation/Skin Start: 12/03/24 08:46 Freq: Status: Active Protocol: Document 12/05/24 11:33 MB (Rec: 12/05/24 13:27 MB [id number]) Posture Evaluation Comments Posture Comments Standing posture with shoes doffed: forward and rounded shoulders and left shoulder is mildly higher than the right, increased thoracic kyphosis and sway back presentation, mild left thoracic convexity and left scapula is elevated and anterior compared to the right, left iliac crest is higher than the right Palpation Assessment Location Right shoulder and neck Palpation Details Increased tension right pect, infraspinatus, levator and upper traps, tenderness posterior right AC joint PT-OP-K Range of Motion Start: 12/03/24 08:46 Freq: Status: Active Protocol: Document 12/05/24 11:33 MB (Rec: 12/05/24 13:27 MB [id number]) Cervical Spine Range of Motion Cervical Spine Active Testing Position Standing Flexion 40 Extension 20 Rotation Left 50 Rotation Right 45 Shoulder Goniometric Range of Motion Shoulder Left Testing Position Standing Flexion 160 Abduction 153 Internal Rotation Behind Back (text) T9 Comments Normal passive ER and IR in supine with shoulder in 90/90 Right Testing Position Standing Flexion 145 Abduction 148 Internal Rotation Behind Back (text) T10 Comments Mildly reduced passive IR in supine with shoulder in 90/90, ER normal PT-OP-M Strength Start: 12/03/24 08:46 Freq: Status: Active Protocol: Document 12/05/24 11:33 MB (Rec: 12/05/24 13:27 MB [id number]) Shoulder Strength Shoulder Manual Muscle Testing Left Flexion 5 Normal Abduction (C5) 5 Normal External Rotation 5 Normal Internal Rotation 5 Normal Right Flexion 5 Normal Abduction (C5) 4+ Good+ External Rotation 5 Normal Internal Rotation 5 Normal Elbow/Forearm Strength Elbow and Forearm Manual Muscle Testing Left Flexion (C6) 5 Normal Extension (C7) 5 Normal Supination 4- Good- Right Flexion (C6) 5 Normal Extension (C7) 5 Normal Supination 4- Good- PT-OP-Q Treatments Start: 12/03/24 08:46 Freq: Status: Active Protocol: Document 12/05/24 11:33 MB (Rec: 12/05/24 13:27 MB [id number]) Self-Care/Home Management Treatment Education Patient Education Body Mechanics,Joint Protection Other Education Ed pt in proper sleeping position with head and neck supported and pillow support between arms and legs in side lying, handouts and education about orthostatic hypotension PT-OP-T Assessment and Plan Start: 12/03/24 08:46 Freq: Status: Active Protocol: Document 12/05/24 11:33 MB (Rec: 12/05/24 12:00 MB [id number]) Physical Therapy Assessment Rehab Potential Rehabilitation Potential Good Evaluation Complexity Number of Personal Factors/Comorbidities 1-2 Number of Body Systems Impaired 1-2 Clinical Presentation at Evaluation Evolving Impairments Impairments Gait,Pain,Posture,ROM, Sensation,Soft Tissue Mobility ,Strength Goals 3 Impairment Reports of right shoulder pain awakening her multiple times at night Shellfish Sorter Goal (LTG) Pt will report a 90% improvement in right shoulder pain awakening her at night to improve sleep and restorative rest. LTG Duration 8 weeks 2 Impairment Lack of HEP Shellfish Sorter Goal (LTG) Pt will perform progressive HEP with I including pelvic realignment, postural, ROM, self-mobilization and relaxation, range and strengthening exercises to improve pain and strength. LTG Duration 8 weeks 1 Impairment QuickDASH score reflects 31.81 % impairment Retirement Goal (LTG) Pt will present with improved QuickDASH score reflecting no more than 10% impairment to improve quality of life. LTG Duration 8 weeks Assessment Summary Assessment Pt is a 69 y/o female presenting with postural and spinal changes, myofascial tension right shoulder and cervical musculature, some reports of paresthesias in right great toe and right thenar web space and mild changes in right shoulder range and strength. Ed pt on proper sleeping today. Currently, PT favors postural changes affecting pain and range and will con't to monitor pain and paresthesias. Pt reports occ dizziness. Orthostatic assessment with BP and HR in LUE: supine 140/86, 71; standing 119/77, 76; standing 1' 118/80, 82. Provided pt with education about orthostatic hypotension, provided instructional handouts about making fluids count and other things that can be helpful and harmful. Pt will benefit from PT for education, exercise, manual work. Pt has entire right sided changes and pain issues and will address any dysfunctions that contribute to right shoulder pain during PT course as appropriate as her posture and mobility and gait pattern directly affect her thoracic spine, shoulder and neck. Physical Therapy Plan Frequency and Duration Frequency of Treatment 2x/Week Duration of treatment (weeks) 8 Plan of Care Start Date 12/05/24 Plan of Care End Date 02/05/25 Therapeutic Interventions Therapeutic Interventions Balance Training,Canalithic Repositioning,Home Exercise Program,Joint Mobilizations, Manual Therapy,Neuromuscular Re-education,Patient/Caregiver Education,Self-Care/Home Management,Soft Tissue Mobilization,Taping, Therapeutic Activities, Therapeutic Exercises Modalities Cold Pack/Ice Massage,Electric Stimulation,Hot Packs, Traction- Mechanical Next Visit Focus/Plan Next Note Type Treatment Note Next Visit Plan Initiate manual work and postural exercises, likely pelvic realignment exercises to help the whole postural chain Next, thoracic and scapular, cervical and shoulder exercises
--- NOTE | 2024-12-18 10:30 | PT.OTN ---
Current Diagnoses Other chronic pain (12/18/24) Pain in right shoulder (12/18/24) Physical Therapy Treatment Note PT-OP-A Visit Information Start: 12/03/24 08:46 Freq: Status: Active Protocol: Document 12/18/24 09:50 SP (Rec: 12/18/24 10:39 SP [id number]) Out-Patient Physical Therapy Visit Information Visit Information Visit Type Treatment Note Visit Note Medicare and for Life Progress note by 01/05/25 Visit Start Time 09:50 Visit Stop Time 10:30 Visit Number 2 Number of PAINT BRUSH MAKER Visits 1 Evaluation Information Evaluation Date 12/05/24 Precautions Precautions OP, orthostatic on eval PT-OP-B Current Condition Start: 12/03/24 08:46 Freq: Status: Active Protocol: Document 12/05/24 11:33 MB (Rec: 12/05/24 12:00 MB [id number]) Current Condition History of Current Condition Onset Date 11 years ago Current Complaints Right shoulder pain that wakes her up History of Current Condition Pt reports that 11 years ago this week, 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 She had tail of pancreas, spleen and 10 inches of colon also removed. She noticed her right shoulder was a problem at that time. Pt reports that she used to have a dog who also pulled on the leash and may have irritated her right shoulder. She is right handed. Pt reports right hip, knee and shoulder problem and plantar fasciitis on both feet. Pt reports history of 5 brain aneurysms and she had 2 brain stents in March of 2021 and April of 2021. She was dizzy beforehand. Pt uses lidocain patches on right arm. She sleeps on her side. Pt reports pain and tingling in right toe. Pt reports occ neck. Pt reports putting on bra and exercise bra in particular is challenging. She asks her a lot to open jars. Right reports occ numbness in right web of thumb/thenar eminence area. Treatment Goals Patient/Caregiver Goals To improve sleep and pain. PT-OP-C Subjective Start: 12/03/24 08:46 Freq: Status: Active Protocol: Document 12/18/24 09:50 SP (Rec: 12/18/24 10:39 SP [id number]) OP-PT Subjective Patient Comments Patient Comments Pt reported PT-OP-J Posture/Palpation/Skin Start: 12/03/24 08:46 Freq: Status: Active Protocol: Document 12/05/24 11:33 MB (Rec: 12/05/24 13:27 MB [id number]) Posture Evaluation Comments Posture Comments Standing posture with shoes doffed: forward and rounded shoulders and left shoulder is mildly higher than the right, increased thoracic kyphosis and sway back presentation, mild left thoracic convexity and left scapula is elevated and anterior compared to the right, left iliac crest is higher than the right Palpation Assessment Location Right shoulder and neck Palpation Details Increased tension right pect, infraspinatus, levator and upper traps, tenderness posterior right AC joint PT-OP-K Range of Motion Start: 12/03/24 08:46 Freq: Status: Active Protocol: Document 12/05/24 11:33 MB (Rec: 12/05/24 13:27 MB [id number]) Cervical Spine Range of Motion Cervical Spine Active Testing Position Standing Flexion 40 Extension 20 Rotation Left 50 Rotation Right 45 Shoulder Goniometric Range of Motion Shoulder Left Testing Position Standing Flexion 160 Abduction 153 Internal Rotation Behind Back (text) T9 Comments Normal passive ER and IR in supine with shoulder in 90/90 Right Testing Position Standing Flexion 145 Abduction 148 Internal Rotation Behind Back (text) T10 Comments Mildly reduced passive IR in supine with shoulder in 90/90, ER normal PT-OP-M Strength Start: 12/03/24 08:46 Freq: Status: Active Protocol: Document 12/05/24 11:33 MB (Rec: 12/05/24 13:27 MB [id number]) Shoulder Strength Shoulder Manual Muscle Testing Left Flexion 5 Normal Abduction (C5) 5 Normal External Rotation 5 Normal Internal Rotation 5 Normal Right Flexion 5 Normal Abduction (C5) 4+ Good+ External Rotation 5 Normal Internal Rotation 5 Normal Elbow/Forearm Strength Elbow and Forearm Manual Muscle Testing Left Flexion (C6) 5 Normal Extension (C7) 5 Normal Supination 4- Good- Right Flexion (C6) 5 Normal Extension (C7) 5 Normal Supination 4- Good- PT-OP-Q Treatments Start: 12/03/24 08:46 Freq: Status: Active Protocol: Document 12/18/24 09:50 SP (Rec: 12/18/24 10:39 SP [id number]) Therapeutic Exercises Supine Exercises pelvic realignment exercises Supine Exercise Name added to HEP with HO Side bilateral Reps/Minutes 3 SH x5 reps each Comments isometric add and HS press, hip lift Sidelying Exercises open book Sidelying Exercise Name added to HEP with HO Side bilateral Reps/Minutes 5 reps 2 SH Comments cued slower scapular glide, gentle pec stretch end feel 2 SH Manual Therapy Treatment Consent Patient gave verbal consent for manual Yes treatment Other Other Manual Treatments Pt hooklying release positioning: R>L UT, LS, SOR, R pec, R bicep Manual STMs and MWM humeral IR/ER small range punches decreased anterior shld tightness discomfort, gentle light CS manual traction. L SL: STMs R Rhomboids, infraspinatus, scapulothoracic mobility adduction/depression. While give verbal education on openbook for HEP before performance. PT-OP-T Assessment and Plan Start: 12/03/24 08:46 Freq: Status: Active Protocol: Document 12/18/24 09:50 SP (Rec: 12/18/24 10:39 SP [id number]) Physical Therapy Assessment Goals 3 Impairment Reports of right shoulder pain awakening her multiple times at night Alf Goal (LTG) Pt will report a 90% improvement in right shoulder pain awakening her at night to improve sleep and restorative rest. LTG Duration 8 weeks 2 Impairment Lack of HEP Dryer And Washer Mechanic Goal (LTG) Pt will perform progressive HEP with I including pelvic realignment, postural, ROM, self-mobilization and relaxation, range and strengthening exercises to improve pain and strength. LTG Duration 8 weeks 1 Impairment QuickDASH score reflects 31.81 % impairment Alf Goal (LTG) Pt will present with improved QuickDASH score reflecting no more than 10% impairment to improve quality of life. LTG Duration 8 weeks Assessment Summary Assessment Pt good response to manual in positional release CS and R shld scapular mobiltiy hooklying then L SL. Cues for slow pacing openbook and gentle movement pelvic realignment to support increased spinal and scapular mobility whole postural mobility with reports feels good. Physical Therapy Plan Frequency and Duration Frequency of Treatment 2x/Week Duration of treatment (weeks) 8 Plan of Care Start Date 12/05/24 Plan of Care End Date 02/05/25 Therapeutic Interventions Therapeutic Interventions Balance Training,Canalithic Repositioning,Home Exercise Program,Joint Mobilizations, Manual Therapy,Neuromuscular Re-education,Patient/Caregiver Education,Self-Care/Home Management,Soft Tissue Mobilization,Taping, Therapeutic Activities, Therapeutic Exercises Modalities Cold Pack/Ice Massage,Electric Stimulation,Hot Packs, Traction- Mechanical Next Visit Focus/Plan Next Note Type Treatment Note Next Visit Plan Recheck pelvic realigment and open book added last tx. POC: manual work and postural exercises. Next, thoracic and scapular, cervical and shoulder exercises
--- NOTE | 2024-12-20 11:36 | PT.OTN ---
Current Diagnoses Other chronic pain (12/20/24) Pain in right shoulder (12/20/24) Physical Therapy Treatment Note PT-OP-A Visit Information Start: 12/03/24 08:46 Freq: Status: Active Protocol: Document 12/20/24 10:45 SP (Rec: 12/20/24 11:39 SP [id number]) Out-Patient Physical Therapy Visit Information Visit Information Visit Type Treatment Note Visit Note Medicare and for Life Progress note by 01/05/25 Visit Start Time 10:45 Visit Stop Time 11:36 Visit Number 3 Number of HOUSE WIRER HELPER Visits 2 Evaluation Information Evaluation Date 12/05/24 Precautions Precautions OP, orthostatic on eval PT-OP-B Current Condition Start: 12/03/24 08:46 Freq: Status: Active Protocol: Document 12/05/24 11:33 MB (Rec: 12/05/24 12:00 MB [id number]) Current Condition History of Current Condition Onset Date 11 years ago Current Complaints Right shoulder pain that wakes her up History of Current Condition Pt reports that 11 years ago this week, 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 She had tail of pancreas, spleen and 10 inches of colon also removed. She noticed her right shoulder was a problem at that time. Pt reports that she used to have a dog who also pulled on the leash and may have irritated her right shoulder. She is right handed. Pt reports right hip, knee and shoulder problem and plantar fasciitis on both feet. Pt reports history of 5 brain aneurysms and she had 2 brain stents in March of 2021 and April of 2021. She was dizzy beforehand. Pt uses lidocain patches on right arm. She sleeps on her side. Pt reports pain and tingling in right toe. Pt reports occ neck. Pt reports putting on bra and exercise bra in particular is challenging. She asks her a lot to open jars. Right reports occ numbness in right web of thumb/thenar eminence area. Treatment Goals Patient/Caregiver Goals To improve sleep and pain. PT-OP-C Subjective Start: 12/03/24 08:46 Freq: Status: Active Protocol: Document 12/20/24 10:45 SP (Rec: 12/20/24 11:39 SP [id number]) OP-PT Subjective Patient Comments Patient Comments Pt reported did really well after last tx. Compliant with HEP. 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 She also helping some moving boxes around little sore R UT and anterior R shld but not like ususal. She states hardest thing is vacuuming pain R shld . She was able to sleep better on both sides lately. Patient Reported Progress Improving PT-OP-J Posture/Palpation/Skin Start: 12/03/24 08:46 Freq: Status: Active Protocol: Document 12/05/24 11:33 MB (Rec: 12/05/24 13:27 MB [id number]) Posture Evaluation Comments Posture Comments Standing posture with shoes doffed: forward and rounded shoulders and left shoulder is mildly higher than the right, increased thoracic kyphosis and sway back presentation, mild left thoracic convexity and left scapula is elevated and anterior compared to the right, left iliac crest is higher than the right Palpation Assessment Location Right shoulder and neck Palpation Details Increased tension right pect, infraspinatus, levator and upper traps, tenderness posterior right AC joint PT-OP-K Range of Motion Start: 12/03/24 08:46 Freq: Status: Active Protocol: Document 12/05/24 11:33 MB (Rec: 12/05/24 13:27 MB [id number]) Cervical Spine Range of Motion Cervical Spine Active Testing Position Standing Flexion 40 Extension 20 Rotation Left 50 Rotation Right 45 Shoulder Goniometric Range of Motion Shoulder Left Testing Position Standing Flexion 160 Abduction 153 Internal Rotation Behind Back (text) T9 Comments Normal passive ER and IR in supine with shoulder in 90/90 Right Testing Position Standing Flexion 145 Abduction 148 Internal Rotation Behind Back (text) T10 Comments Mildly reduced passive IR in supine with shoulder in 90/90, ER normal PT-OP-M Strength Start: 12/03/24 08:46 Freq: Status: Active Protocol: Document 12/05/24 11:33 MB (Rec: 12/05/24 13:27 MB [id number]) Shoulder Strength Shoulder Manual Muscle Testing Left Flexion 5 Normal Abduction (C5) 5 Normal External Rotation 5 Normal Internal Rotation 5 Normal Right Flexion 5 Normal Abduction (C5) 4+ Good+ External Rotation 5 Normal Internal Rotation 5 Normal Elbow/Forearm Strength Elbow and Forearm Manual Muscle Testing Left Flexion (C6) 5 Normal Extension (C7) 5 Normal Supination 4- Good- Right Flexion (C6) 5 Normal Extension (C7) 5 Normal Supination 4- Good- PT-OP-Q Treatments Start: 12/03/24 08:46 Freq: Status: Active Protocol: Document 12/20/24 10:45 SP (Rec: 12/20/24 11:39 SP [id number]) Therapeutic Exercises Sidelying Exercises open book Sidelying Exercise Name reviewed Side bilateral Reps/Minutes 5 reps 2 SH breath Comments cued slower scapular glide add /depress, gentle pec stretch end feel 2 SH Sitting Exercises scap retraction Sitting Exercise Name added to HEP (hand written on seated posture HO) Side bilateral Reps/Minutes 10 SH x10 Comments cued neutral pelvic no low back arch, with gentle scapular draw back. Manual Therapy Treatment Consent Patient gave verbal consent for manual Yes treatment Other Other Manual Treatments Pt hooklying release positioning: R>L UT, R<L LS, SOR, R pec, R coracobrachialis , R prox bicep, R detoid, Manual STMs and MWM humeral IR /ER and small range punches decreased anterior shld tightness discomfort. L SL: STMs R Rhomboids, R infraspinatus, R scapulothoracic mobility adduction/depression. R AC jt glide gapping during ABD AROM up to 90 deg. MWM proximal R inferior humeral glide with AROM ABD with cues for slight protraction through range and longaxis ER improved decrease pinch/discomfort end range. Self-Care/Home Management Treatment Education Patient Education Body Mechanics,Joint Protection,Pain Management, Posture Other Education Ed side sleeping with good use pillows self front between BUEs, behind back, appropriate under head, suggested pillow between BLEs for spinal support as well. Additional time anatomy brenda for education postural alignment and scapular postioning in standing, sitting reading trunk/spine/ shld alignment for support R shld and neck comfort neutral. Suggested device hold tablet for reading and mindful of posture. Provided HOs for postural alignment all positions. PT-OP-T Assessment and Plan Start: 12/03/24 08:46 Freq: Status: Active Protocol: Document 12/20/24 10:45 SP (Rec: 12/20/24 11:39 SP [id number]) Physical Therapy Assessment Goals 3 Impairment Reports of right shoulder pain awakening her multiple times at night Pickling Operator Goal (LTG) Pt will report a 90% improvement in right shoulder pain awakening her at night to improve sleep and restorative rest. LTG Duration 8 weeks 2 Impairment Lack of HEP Penitentiary Goal (LTG) Pt will perform progressive HEP with I including pelvic realignment, postural, ROM, self-mobilization and relaxation, range and strengthening exercises to improve pain and strength. LTG Duration 8 weeks 1 Impairment QuickDASH score reflects 31.81 % impairment Pickling Operator Goal (LTG) Pt will present with improved QuickDASH score reflecting no more than 10% impairment to improve quality of life. LTG Duration 8 weeks Assessment Summary Assessment Pt good feedback response to manual and MWM with education on postural and spinal alignment during activity then sitting for improved comfort reading, provided HO support. Cues for spinal and neutral pelvis with gentle scapular retraction with upright posture to support shoulder neutral positioning for reading. Pt would benefit from body mechanics training vacuuming, ran out of time for end ttx today. Physical Therapy Plan Frequency and Duration Frequency of Treatment 2x/Week Duration of treatment (weeks) 8 Plan of Care Start Date 12/05/24 Plan of Care End Date 02/05/25 Therapeutic Interventions Therapeutic Interventions Balance Training,Canalithic Repositioning,Home Exercise Program,Joint Mobilizations, Manual Therapy,Neuromuscular Re-education,Patient/Caregiver Education,Self-Care/Home Management,Soft Tissue Mobilization,Taping, Therapeutic Activities, Therapeutic Exercises Modalities Cold Pack/Ice Massage,Electric Stimulation,Hot Packs, Traction- Mechanical Next Visit Focus/Plan Next Note Type Treatment Note Next Visit Plan Recheck pelvic realigment, open book, scap retraction, next add body mechanics vacuuming. POC: manual work and postural exercises. Next, thoracic and scapular, cervical and shoulder exercises
--- NOTE | 2024-12-26 13:42 | PT.OTN ---
Current Diagnoses Other chronic pain (12/26/24) Pain in right shoulder (12/26/24) Physical Therapy Treatment Note PT-OP-A Visit Information Start: 12/03/24 08:46 Freq: Status: Active Protocol: Document 12/26/24 13:02 MB (Rec: 12/26/24 13:42 MB [id number]) Out-Patient Physical Therapy Visit Information Visit Information Visit Type Treatment Note Visit Note Medicare and for Life Progress note by 01/05/25 Visit Start Time 13:02 Visit Stop Time 13:42 Visit Number 4 Number of HAND COREMAKER Visits 0 Evaluation Information Evaluation Date 12/05/24 Precautions Precautions OP, orthostatic on eval PT-OP-B Current Condition Start: 12/03/24 08:46 Freq: Status: Active Protocol: Document 12/05/24 11:33 MB (Rec: 12/05/24 12:00 MB [id number]) Current Condition History of Current Condition Onset Date 11 years ago Current Complaints Right shoulder pain that wakes her up History of Current Condition Pt reports that 11 years ago this week, 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 She had tail of pancreas, spleen and 10 inches of colon also removed. She noticed her right shoulder was a problem at that time. Pt reports that she used to have a dog who also pulled on the leash and may have irritated her right shoulder. She is right handed. Pt reports right hip, knee and shoulder problem and plantar fasciitis on both feet. Pt reports history of 5 brain aneurysms and she had 2 brain stents in March of 2021 and April of 2021. She was dizzy beforehand. Pt uses lidocain patches on right arm. She sleeps on her side. Pt reports pain and tingling in right toe. Pt reports occ neck. Pt reports putting on bra and exercise bra in particular is challenging. She asks her a lot to open jars. Right reports occ numbness in right web of thumb/thenar eminence area. Treatment Goals Patient/Caregiver Goals To improve sleep and pain. PT-OP-C Subjective Start: 12/03/24 08:46 Freq: Status: Active Protocol: Document 12/26/24 13:02 MB (Rec: 12/26/24 13:42 MB [id number]) OP-PT Subjective Patient Comments Patient Comments Pt finally got over sinus infection that lasted about 15 days and antibiotics helped. 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 Sleeping is going better and she is not waking up with so much pain. PT-OP-J Posture/Palpation/Skin Start: 12/03/24 08:46 Freq: Status: Active Protocol: Document 12/05/24 11:33 MB (Rec: 12/05/24 13:27 MB [id number]) Posture Evaluation Comments Posture Comments Standing posture with shoes doffed: forward and rounded shoulders and left shoulder is mildly higher than the right, increased thoracic kyphosis and sway back presentation, mild left thoracic convexity and left scapula is elevated and anterior compared to the right, left iliac crest is higher than the right Palpation Assessment Location Right shoulder and neck Palpation Details Increased tension right pect, infraspinatus, levator and upper traps, tenderness posterior right AC joint PT-OP-K Range of Motion Start: 12/03/24 08:46 Freq: Status: Active Protocol: Document 12/05/24 11:33 MB (Rec: 12/05/24 13:27 MB [id number]) Cervical Spine Range of Motion Cervical Spine Active Testing Position Standing Flexion 40 Extension 20 Rotation Left 50 Rotation Right 45 Shoulder Goniometric Range of Motion Shoulder Left Testing Position Standing Flexion 160 Abduction 153 Internal Rotation Behind Back (text) T9 Comments Normal passive ER and IR in supine with shoulder in 90/90 Right Testing Position Standing Flexion 145 Abduction 148 Internal Rotation Behind Back (text) T10 Comments Mildly reduced passive IR in supine with shoulder in 90/90, ER normal PT-OP-M Strength Start: 12/03/24 08:46 Freq: Status: Active Protocol: Document 12/05/24 11:33 MB (Rec: 12/05/24 13:27 MB [id number]) Shoulder Strength Shoulder Manual Muscle Testing Left Flexion 5 Normal Abduction (C5) 5 Normal External Rotation 5 Normal Internal Rotation 5 Normal Right Flexion 5 Normal Abduction (C5) 4+ Good+ External Rotation 5 Normal Internal Rotation 5 Normal Elbow/Forearm Strength Elbow and Forearm Manual Muscle Testing Left Flexion (C6) 5 Normal Extension (C7) 5 Normal Supination 4- Good- Right Flexion (C6) 5 Normal Extension (C7) 5 Normal Supination 4- Good- PT-OP-Q Treatments Start: 12/03/24 08:46 Freq: Status: Active Protocol: Document 12/26/24 13:02 MB (Rec: 12/26/24 13:42 MB [id number]) Therapeutic Exercises Sitting Exercises Chin tuck Sitting Exercise Name HEP and handout Comments 5 reps, 3 sec hold every hour Manual Therapy Treatment Consent Patient gave verbal consent for manual Yes treatment Other Other Manual Treatments Pt prone: STM and positional release B upper traps and infra and TrP B upper traps and infra, grade I mobs only thoracic spine d/t OP, gentle scapular mobs, right subscap Self-Care/Home Management Treatment Education Patient Education Body Mechanics,Home Exercise Program,Joint Protection,Pain Management,Posture Other Education Chin tucks every hour sitting too long, ergonomic set up at desk and for tablet for reading PT-OP-T Assessment and Plan Start: 12/03/24 08:46 Freq: Status: Active Protocol: Document 12/26/24 13:02 MB (Rec: 12/26/24 13:42 MB [id number]) Physical Therapy Assessment Goals 3 Impairment Reports of right shoulder pain awakening her multiple times at night Custodial Goal (LTG) Pt will report a 90% improvement in right shoulder pain awakening her at night to improve sleep and restorative rest. LTG Duration 8 weeks 2 Impairment Lack of HEP Custodial Goal (LTG) Pt will perform progressive HEP with I including pelvic realignment, postural, ROM, self-mobilization and relaxation, range and strengthening exercises to improve pain and strength. LTG Duration 8 weeks 1 Impairment QuickDASH score reflects 31.81 % impairment Rotary Planer Set Up Operator Goal (LTG) Pt will present with improved QuickDASH score reflecting no more than 10% impairment to improve quality of life. LTG Duration 8 weeks Assessment Summary Assessment Pt responds well to manual work today. Con't postural work. Physical Therapy Plan Frequency and Duration Frequency of Treatment 2x/Week Duration of treatment (weeks) 8 Plan of Care Start Date 12/05/24 Plan of Care End Date 02/05/25 Therapeutic Interventions Therapeutic Interventions Balance Training,Canalithic Repositioning,Home Exercise Program,Joint Mobilizations, Manual Therapy,Neuromuscular Re-education,Patient/Caregiver Education,Self-Care/Home Management,Soft Tissue Mobilization,Taping, Therapeutic Activities, Therapeutic Exercises Modalities Cold Pack/Ice Massage,Electric Stimulation,Hot Packs, Traction- Mechanical Next Visit Focus/Plan Next Note Type Treatment Note Next Visit Plan Consider adding body mechanics for vacuuming Next, thoracic and scapular, cervical and shoulder exercises--exercises over foam roller for shoulders, pects and standing band exercises Con't manual work
--- NOTE | 2024-12-28 14:31 | PT.OTN ---
Current Diagnoses Other chronic pain (12/28/24) Pain in right shoulder (12/28/24) Physical Therapy Treatment Note PT-OP-A Visit Information Start: 12/03/24 08:46 Freq: Status: Active Protocol: Document 12/28/24 13:53 SP (Rec: 12/28/24 14:31 SP [id number]) Out-Patient Physical Therapy Visit Information Visit Information Visit Type Treatment Note Visit Note Medicare and for Life Progress note by 01/05/25 Visit Start Time 13:53 Visit Stop Time 14:31 Visit Number 5 Number of WATERPROOFING MIXER Visits 1 Evaluation Information Evaluation Date 12/05/24 Precautions Precautions OP, orthostatic on eval PT-OP-B Current Condition Start: 12/03/24 08:46 Freq: Status: Active Protocol: Document 12/05/24 11:33 MB (Rec: 12/05/24 12:00 MB [id number]) Current Condition History of Current Condition Onset Date 11 years ago Current Complaints Right shoulder pain that wakes her up History of Current Condition Pt reports that 11 years ago this week, 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 She had tail of pancreas, spleen and 10 inches of colon also removed. She noticed her right shoulder was a problem at that time. Pt reports that she used to have a dog who also pulled on the leash and may have irritated her right shoulder. She is right handed. Pt reports right hip, knee and shoulder problem and plantar fasciitis on both feet. Pt reports history of 5 brain aneurysms and she had 2 brain stents in March of 2021 and April of 2021. She was dizzy beforehand. Pt uses lidocain patches on right arm. She sleeps on her side. Pt reports pain and tingling in right toe. Pt reports occ neck. Pt reports putting on bra and exercise bra in particular is challenging. She asks her a lot to open jars. Right reports occ numbness in right web of thumb/thenar eminence area. Treatment Goals Patient/Caregiver Goals To improve sleep and pain. PT-OP-C Subjective Start: 12/03/24 08:46 Freq: Status: Active Protocol: Document 12/28/24 13:53 SP (Rec: 12/28/24 14:31 SP [id number]) OP-PT Subjective Patient Comments Patient Comments Pt reports was sore after last tx over R medial boarder scap and anterior R shld but was better the next day. PT-OP-J Posture/Palpation/Skin Start: 12/03/24 08:46 Freq: Status: Active Protocol: Document 12/05/24 11:33 MB (Rec: 12/05/24 13:27 MB [id number]) Posture Evaluation Comments Posture Comments Standing posture with shoes doffed: forward and rounded shoulders and left shoulder is mildly higher than the right, increased thoracic kyphosis and sway back presentation, mild left thoracic convexity and left scapula is elevated and anterior compared to the right, left iliac crest is higher than the right Palpation Assessment Location Right shoulder and neck Palpation Details Increased tension right pect, infraspinatus, levator and upper traps, tenderness posterior right AC joint PT-OP-K Range of Motion Start: 12/03/24 08:46 Freq: Status: Active Protocol: Document 12/05/24 11:33 MB (Rec: 12/05/24 13:27 MB [id number]) Cervical Spine Range of Motion Cervical Spine Active Testing Position Standing Flexion 40 Extension 20 Rotation Left 50 Rotation Right 45 Shoulder Goniometric Range of Motion Shoulder Left Testing Position Standing Flexion 160 Abduction 153 Internal Rotation Behind Back (text) T9 Comments Normal passive ER and IR in supine with shoulder in 90/90 Right Testing Position Standing Flexion 145 Abduction 148 Internal Rotation Behind Back (text) T10 Comments Mildly reduced passive IR in supine with shoulder in 90/90, ER normal PT-OP-M Strength Start: 12/03/24 08:46 Freq: Status: Active Protocol: Document 12/05/24 11:33 MB (Rec: 12/05/24 13:27 MB [id number]) Shoulder Strength Shoulder Manual Muscle Testing Left Flexion 5 Normal Abduction (C5) 5 Normal External Rotation 5 Normal Internal Rotation 5 Normal Right Flexion 5 Normal Abduction (C5) 4+ Good+ External Rotation 5 Normal Internal Rotation 5 Normal Elbow/Forearm Strength Elbow and Forearm Manual Muscle Testing Left Flexion (C6) 5 Normal Extension (C7) 5 Normal Supination 4- Good- Right Flexion (C6) 5 Normal Extension (C7) 5 Normal Supination 4- Good- PT-OP-Q Treatments Start: 12/03/24 08:46 Freq: Status: Active Protocol: Document 12/28/24 13:53 SP (Rec: 12/28/24 14:31 SP [id number]) Therapeutic Exercises Supine Exercises pec stretch Supine Exercise Name added to HEP with HO Side bilateral Equipment Used over noodle Reps/Minutes 5 breathes Noodle exercises Supine Exercise Name added to HEP with HO: HABD, FF , 1/2 X, protraction/ depression, ABD Side bilateral Resistance AROM Equipment Used over noodle Reps/Minutes 10 reps each Comments cued slow, occ tactile cues proper form Manual Therapy Treatment Consent Patient gave verbal consent for manual Yes treatment Other Other Manual Treatments Pt prone positional release pillow under pelvis: STMs B upper traps and infra, R gentle retraction & depression R scapular mobs PT-OP-T Assessment and Plan Start: 12/03/24 08:46 Freq: Status: Active Protocol: Document 12/28/24 13:53 SP (Rec: 12/28/24 14:31 SP [id number]) Physical Therapy Assessment Goals 3 Impairment Reports of right shoulder pain awakening her multiple times at night Athletics Teacher Goal (LTG) Pt will report a 90% improvement in right shoulder pain awakening her at night to improve sleep and restorative rest. LTG Duration 8 weeks 2 Impairment Lack of HEP Prison Goal (LTG) Pt will perform progressive HEP with I including pelvic realignment, postural, ROM, self-mobilization and relaxation, range and strengthening exercises to improve pain and strength. LTG Duration 8 weeks 1 Impairment QuickDASH score reflects 31.81 % impairment Athletics Teacher Goal (LTG) Pt will present with improved QuickDASH score reflecting no more than 10% impairment to improve quality of life. LTG Duration 8 weeks Assessment Summary Assessment Pt responded well to manual prone. Progressed hooklying ther ex AROM BUEs with cues for slow AROM painfree range with good feedback. Occ cues for chin tuck and LS neutral while on noodle. Pt reports no pain end tx and good to get more active exercises. Physical Therapy Plan Frequency and Duration Frequency of Treatment 2x/Week Duration of treatment (weeks) 8 Plan of Care Start Date 12/05/24 Plan of Care End Date 02/05/25 Therapeutic Interventions Therapeutic Interventions Balance Training,Canalithic Repositioning,Home Exercise Program,Joint Mobilizations, Manual Therapy,Neuromuscular Re-education,Patient/Caregiver Education,Self-Care/Home Management,Soft Tissue Mobilization,Taping, Therapeutic Activities, Therapeutic Exercises Modalities Cold Pack/Ice Massage,Electric Stimulation,Hot Packs, Traction- Mechanical Next Visit Focus/Plan Next Note Type Progress Note Next Visit Plan Recheck noodle pec and UE HEP. Next check her body mechanics for vacuuming Next, thoracic and scapular, cervical and shoulder exercises- standing band exercises Con't manual work
--- NOTE | 2025-01-02 11:30 | PT.OTN ---
Current Diagnoses Other chronic pain (01/02/25) Pain in right shoulder (01/02/25) Physical Therapy Treatment Note PT-OP-A Visit Information Start: 12/03/24 08:46 Freq: Status: Active Protocol: Document 01/02/25 10:47 MB (Rec: 01/02/25 11:21 MB [id number]) Out-Patient Physical Therapy Visit Information Visit Information Visit Type Progress Note Visit Note Medicare and for Life Next progress note by 02/01/25 Visit Start Time 10:47 Visit Stop Time 11:27 Visit Number 6 Number of PACK OUT OPERATOR Visits 0 Evaluation Information Evaluation Date 12/05/24 Precautions Precautions OP, orthostatic on eval, pt does not like to lie on floor, use yoga mat or do exercises on plinth PT-OP-B Current Condition Start: 12/03/24 08:46 Freq: Status: Active Protocol: Document 12/05/24 11:33 MB (Rec: 12/05/24 12:00 MB [id number]) Current Condition History of Current Condition Onset Date 11 years ago Current Complaints Right shoulder pain that wakes her up History of Current Condition Pt reports that 11 years ago this week, 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 She had tail of pancreas, spleen and 10 inches of colon also removed. She noticed her right shoulder was a problem at that time. Pt reports that she used to have a dog who also pulled on the leash and may have irritated her right shoulder. She is right handed. Pt reports right hip, knee and shoulder problem and plantar fasciitis on both feet. Pt reports history of 5 brain aneurysms and she had 2 brain stents in March of 2021 and April of 2021. She was dizzy beforehand. Pt uses lidocain patches on right arm. She sleeps on her side. Pt reports pain and tingling in right toe. Pt reports occ neck. Pt reports putting on bra and exercise bra in particular is challenging. She asks her a lot to open jars. Right reports occ numbness in right web of thumb/thenar eminence area. Treatment Goals Patient/Caregiver Goals To improve sleep and pain. PT-OP-C Subjective Start: 12/03/24 08:46 Freq: Status: Active Protocol: Document 01/02/25 10:47 MB (Rec: 01/02/25 11:21 MB [id number]) OP-PT Subjective Patient Comments Patient Comments Pt can tell she is much better overall. She is awakening less d/t pain and she notices her posture more. Pt reports that her glands under her armpits feel swollen. She had trouble after her COVID shots. PT-OP-J Posture/Palpation/Skin Start: 12/03/24 08:46 Freq: Status: Active Protocol: Document 12/05/24 11:33 MB (Rec: 12/05/24 13:27 MB [id number]) Posture Evaluation Comments Posture Comments Standing posture with shoes doffed: forward and rounded shoulders and left shoulder is mildly higher than the right, increased thoracic kyphosis and sway back presentation, mild left thoracic convexity and left scapula is elevated and anterior compared to the right, left iliac crest is higher than the right Palpation Assessment Location Right shoulder and neck Palpation Details Increased tension right pect, infraspinatus, levator and upper traps, tenderness posterior right AC joint PT-OP-K Range of Motion Start: 12/03/24 08:46 Freq: Status: Active Protocol: Document 12/05/24 11:33 MB (Rec: 12/05/24 13:27 MB [id number]) Cervical Spine Range of Motion Cervical Spine Active Testing Position Standing Flexion 40 Extension 20 Rotation Left 50 Rotation Right 45 Shoulder Goniometric Range of Motion Shoulder Left Testing Position Standing Flexion 160 Abduction 153 Internal Rotation Behind Back (text) T9 Comments Normal passive ER and IR in supine with shoulder in 90/90 Right Testing Position Standing Flexion 145 Abduction 148 Internal Rotation Behind Back (text) T10 Comments Mildly reduced passive IR in supine with shoulder in 90/90, ER normal PT-OP-M Strength Start: 12/03/24 08:46 Freq: Status: Active Protocol: Document 12/05/24 11:33 MB (Rec: 12/05/24 13:27 MB [id number]) Shoulder Strength Shoulder Manual Muscle Testing Left Flexion 5 Normal Abduction (C5) 5 Normal External Rotation 5 Normal Internal Rotation 5 Normal Right Flexion 5 Normal Abduction (C5) 4+ Good+ External Rotation 5 Normal Internal Rotation 5 Normal Elbow/Forearm Strength Elbow and Forearm Manual Muscle Testing Left Flexion (C6) 5 Normal Extension (C7) 5 Normal Supination 4- Good- Right Flexion (C6) 5 Normal Extension (C7) 5 Normal Supination 4- Good- PT-OP-Q Treatments Start: 12/03/24 08:46 Freq: Status: Active Protocol: Document 01/02/25 10:47 MB (Rec: 01/02/25 11:21 MB [id number]) Therapeutic Exercises Supine Exercises pec stretch Supine Exercise Name Reviewed from HEP today Side bilateral Equipment Used over noodle on plinth Comments Knees bent and abd drawing in Noodle exercises Supine Exercise Name Reviewed from [facility] today Side bilateral Resistance AROM Equipment Used over noodle on plinth Reps/Minutes 10 reps each Comments Cues for form, flexion, hor abd, 1/2X pelvic realignment exercises Comments Verbally reviewed today Standing Exercises Theracane, back electric arc furnace operator and racquet ball Standing Exercise Name [facility] Comments Upper traps and levator and prefers racquet ball Self-Care/Home Management Treatment Education Patient Education Body Mechanics,Home Exercise Program,Joint Protection,Pain Management,Posture Other Education Re-ed pt to practice postural exercises during the day to help with getting them done and re-ed on proper sleeping position and to keep and eye on any armpit swelling that she is reporting to report to doctor PT-OP-T Assessment and Plan Start: 12/03/24 08:46 Freq: Status: Active Protocol: Document 01/02/25 10:47 MB (Rec: 01/02/25 11:21 MB [id number]) Physical Therapy Assessment Goals 3 Impairment Reports of right shoulder pain awakening her multiple times at night Automatic Washer Mechanic Goal (LTG) Pt will report a 90% improvement in right shoulder pain awakening her at night to improve sleep and restorative rest. 01/02/25: Pt reports a 70% improvement in right shoulder pain awakening her at night LTG Duration 8 weeks--progressing 2 Impairment Lack of HEP Residential Goal (LTG) Pt will perform progressive HEP with I including pelvic realignment, postural, ROM, self-mobilization and relaxation, range and strengthening exercises to improve pain and strength. 01/02/25: Pt reports she is performing most of her exercises at home LTG Duration 8 weeks--progressing 1 Impairment QuickDASH score reflects 31.81 % impairment Automatic Washer Mechanic Goal (LTG) Pt will present with improved QuickDASH score reflecting no more than 10% impairment to improve quality of life. 01/02/25: QuickDASH score reflects 27.27% impairment LTG Duration 8 weeks-- slowly progressing Assessment Summary Assessment Pt is progressing towards PT goals and so con't PT per plan . Physical Therapy Plan Frequency and Duration Frequency of Treatment 2x/Week Duration of treatment (weeks) 8 Plan of Care Start Date 12/05/24 Plan of Care End Date 02/05/25 Therapeutic Interventions Therapeutic Interventions Balance Training,Canalithic Repositioning,Home Exercise Program,Joint Mobilizations, Manual Therapy,Neuromuscular Re-education,Patient/Caregiver Education,Self-Care/Home Management,Soft Tissue Mobilization,Taping, Therapeutic Activities, Therapeutic Exercises Modalities Cold Pack/Ice Massage,Electric Stimulation,Hot Packs, Traction- Mechanical Next Visit Focus/Plan Next Note Type Treatment Note Next Visit Plan Next check her body mechanics for vacuuming Next, thoracic and scapular, cervical and shoulder exercises- standing band exercises Con't manual work
--- NOTE | 2025-01-16 15:12 | PT.OTN ---
Current Diagnoses Other chronic pain (01/16/25) Pain in right shoulder (01/16/25) Physical Therapy Treatment Note PT-OP-A Visit Information Start: 12/03/24 08:46 Freq: Status: Active Protocol: Document 01/16/25 14:35 MB (Rec: 01/16/25 15:06 MB Desktop) Out-Patient Physical Therapy Visit Information Visit Information Visit Type Treatment Note Visit Note Medicare and for Life Next progress note by 02/01/25 Visit Start Time 14:35 Visit Stop Time 15:13 Visit Number 7 Number of DIRECTOR OF CARDIOLOGY Visits 0 Evaluation Information Evaluation Date 12/05/24 Precautions Precautions OP, orthostatic on eval, pt does not like to lie on floor, use yoga mat or do exercises on plinth PT-OP-B Current Condition Start: 12/03/24 08:46 Freq: Status: Active Protocol: Document 12/05/24 11:33 MB (Rec: 12/05/24 12:00 MB [id number]) Current Condition History of Current Condition Onset Date 11 years ago Current Complaints Right shoulder pain that wakes her up History of Current Condition Pt reports that 11 years ago this week, 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 She had tail of pancreas, spleen and 10 inches of colon also removed. She noticed her right shoulder was a problem at that time. Pt reports that she used to have a dog who also pulled on the leash and may have irritated her right shoulder. She is right handed. Pt reports right hip, knee and shoulder problem and plantar fasciitis on both feet. Pt reports history of 5 brain aneurysms and she had 2 brain stents in March of 2021 and April of 2021. She was dizzy beforehand. Pt uses lidocain patches on right arm. She sleeps on her side. Pt reports pain and tingling in right toe. Pt reports occ neck. Pt reports putting on bra and exercise bra in particular is challenging. She asks her a lot to open jars. Right reports occ numbness in right web of thumb/thenar eminence area. Treatment Goals Patient/Caregiver Goals To improve sleep and pain. PT-OP-C Subjective Start: 12/03/24 08:46 Freq: Status: Active Protocol: Document 01/16/25 14:35 MB (Rec: 01/16/25 15:06 MB Desktop) OP-PT Subjective Patient Comments Patient Comments Pt states that she went on vacation to [place] and they did a lot of driving. She did not do a lot of her exercises. She is feeling pretty good. PT-OP-J Posture/Palpation/Skin Start: 12/03/24 08:46 Freq: Status: Active Protocol: Document 12/05/24 11:33 MB (Rec: 12/05/24 13:27 MB [id number]) Posture Evaluation Comments Posture Comments Standing posture with shoes doffed: forward and rounded shoulders and left shoulder is mildly higher than the right, increased thoracic kyphosis and sway back presentation, mild left thoracic convexity and left scapula is elevated and anterior compared to the right, left iliac crest is higher than the right Palpation Assessment Location Right shoulder and neck Palpation Details Increased tension right pect, infraspinatus, levator and upper traps, tenderness posterior right AC joint PT-OP-K Range of Motion Start: 12/03/24 08:46 Freq: Status: Active Protocol: Document 12/05/24 11:33 MB (Rec: 12/05/24 13:27 MB [id number]) Cervical Spine Range of Motion Cervical Spine Active Testing Position Standing Flexion 40 Extension 20 Rotation Left 50 Rotation Right 45 Shoulder Goniometric Range of Motion Shoulder Left Testing Position Standing Flexion 160 Abduction 153 Internal Rotation Behind Back (text) T9 Comments Normal passive ER and IR in supine with shoulder in 90/90 Right Testing Position Standing Flexion 145 Abduction 148 Internal Rotation Behind Back (text) T10 Comments Mildly reduced passive IR in supine with shoulder in 90/90, ER normal PT-OP-M Strength Start: 12/03/24 08:46 Freq: Status: Active Protocol: Document 12/05/24 11:33 MB (Rec: 12/05/24 13:27 MB [id number]) Shoulder Strength Shoulder Manual Muscle Testing Left Flexion 5 Normal Abduction (C5) 5 Normal External Rotation 5 Normal Internal Rotation 5 Normal Right Flexion 5 Normal Abduction (C5) 4+ Good+ External Rotation 5 Normal Internal Rotation 5 Normal Elbow/Forearm Strength Elbow and Forearm Manual Muscle Testing Left Flexion (C6) 5 Normal Extension (C7) 5 Normal Supination 4- Good- Right Flexion (C6) 5 Normal Extension (C7) 5 Normal Supination 4- Good- PT-OP-Q Treatments Start: 12/03/24 08:46 Freq: Status: Active Protocol: Document 01/16/25 14:35 MB (Rec: 01/16/25 15:06 MB Desktop) Therapeutic Exercises Standing Exercises Thoracic mobility of soft blue ball Standing Exercise Name HEP and handout Comments Ball against wall today over ribs and spine, mobility Scapular retraction and elbow extension Standing Exercise Name HEP and handout given Side bilateral Resistance Green band Reps/Minutes Many reps Comments Cues for form Reverse fly Standing Exercise Name HEP and handout given Side bilateral Resistance Green band Reps/Minutes Many reps Comments Cues to make w, core, posture, exercise is like have scap ret and half ER Shoulder ER Standing Exercise Name HEP and handout given Side bilateral Resistance Green band Reps/Minutes Many reps Comments Cues for form, cue for posture , hitchiker thumb Row with arms straight Standing Exercise Name HEP and handout given Side bilateral Resistance Green band Reps/Minutes Many reps Comments Cues for form, scapular retraction and core tight Self-Care/Home Management Treatment Education Patient Education Body Mechanics,Joint Protection,Posture Other Education Practicing vacuuming with stepping towards direction/ area vacuuming to help not overshoot/reach with arm, practiced with distance help desk representative, encouraged pt to check her steps with vacuuming so she knows she is using her steps to vacuum rather than her arm, cues to hold onto rail if vacuuming steps, cues for core engagement PT-OP-T Assessment and Plan Start: 12/03/24 08:46 Freq: Status: Active Protocol: Document 01/16/25 14:35 MB (Rec: 01/16/25 15:06 MB Desktop) Physical Therapy Assessment Goals 3 Impairment Reports of right shoulder pain awakening her multiple times at night Longterm Goal (LTG) Pt will report a 90% improvement in right shoulder pain awakening her at night to improve sleep and restorative rest. 01/02/25: Pt reports a 70% improvement in right shoulder pain awakening her at night LTG Duration 8 weeks--progressing 2 Impairment Lack of HEP Radar Signal Processing Engineer Goal (LTG) Pt will perform progressive HEP with I including pelvic realignment, postural, ROM, self-mobilization and relaxation, range and strengthening exercises to improve pain and strength. 01/02/25: Pt reports she is performing most of her exercises at home LTG Duration 8 weeks--progressing 1 Impairment QuickDASH score reflects 31.81 % impairment Longterm Goal (LTG) Pt will present with improved QuickDASH score reflecting no more than 10% impairment to improve quality of life. 01/02/25: QuickDASH score reflects 27.27% impairment LTG Duration 8 weeks-- slowly progressing Assessment Summary Assessment Pt is very distractable and talks about all sorts of issues during exercises and so lots of practice and cues and reviewing with handouts. Con' t to progress per plan below. Physical Therapy Plan Frequency and Duration Frequency of Treatment 2x/Week Duration of treatment (weeks) 8 Plan of Care Start Date 12/05/24 Plan of Care End Date 02/05/25 Therapeutic Interventions Therapeutic Interventions Balance Training,Canalithic Repositioning,Home Exercise Program,Joint Mobilizations, Manual Therapy,Neuromuscular Re-education,Patient/Caregiver Education,Self-Care/Home Management,Soft Tissue Mobilization,Taping, Therapeutic Activities, Therapeutic Exercises Modalities Cold Pack/Ice Massage,Electric Stimulation,Hot Packs, Traction- Mechanical Next Visit Focus/Plan Next Note Type Treatment Note Next Visit Plan Review exercises as needed, con't manual work, consider another thoracic mobility exercise such as yoga pose ( child's vs thread the needle vs mermaid vs sitting thoracic rotation side to side and breathing and then extension with hands behind head, consider progressing to foam roller
--- NOTE | 2025-01-18 13:45 | PT.OTN ---
Current Diagnoses Other chronic pain (01/18/25) Pain in right shoulder (01/18/25) Physical Therapy Treatment Note PT-OP-A Visit Information Start: 12/03/24 08:46 Freq: Status: Active Protocol: Document 01/18/25 13:05 SP (Rec: 01/18/25 13:49 SP Laptop) Out-Patient Physical Therapy Visit Information Visit Information Visit Type Treatment Note Visit Note Medicare and [employer] Next progress note by 02/01/25 DIANA Jimenez assisted with ther ex instruction with pt while under direction instruction of DIANA Adams with permission of pt. Visit Start Time 13:05 Visit Stop Time 13:45 Visit Number 8 Number of LANDSCAPE ARCHITECTURE PROFESSOR Visits 1 Evaluation Information Evaluation Date 12/05/24 Precautions Precautions OP, orthostatic on eval, pt does not like to lie on floor, use yoga mat or do exercises on plinth PT-OP-B Current Condition Start: 12/03/24 08:46 Freq: Status: Active Protocol: Document 12/05/24 11:33 MB (Rec: 12/05/24 12:00 MB [id number]) Current Condition History of Current Condition Onset Date 11 years ago Current Complaints Right shoulder pain that wakes her up History of Current Condition Pt reports that 11 years ago this week, 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 She had tail of pancreas, spleen and 10 inches of colon also removed. She noticed her right shoulder was a problem at that time. Pt reports that she used to have a dog who also pulled on the leash and may have irritated her right shoulder. She is right handed. Pt reports right hip, knee and shoulder problem and plantar fasciitis on both feet. Pt reports history of 5 brain aneurysms and she had 2 brain stents in March of 2021 and April of 2021. She was dizzy beforehand. Pt uses lidocain patches on right arm. She sleeps on her side. Pt reports pain and tingling in right toe. Pt reports occ neck. Pt reports putting on bra and exercise bra in particular is challenging. She asks her a lot to open jars. Right reports occ numbness in right web of thumb/thenar eminence area. Treatment Goals Patient/Caregiver Goals To improve sleep and pain. PT-OP-C Subjective Start: 12/03/24 08:46 Freq: Status: Active Protocol: Document 01/18/25 13:05 SP (Rec: 01/18/25 13:49 SP Laptop) OP-PT Subjective Patient Comments Patient Comments Pt reports got her more firm ball same size as in PT but didn't feel as good so returned, will look at [employer] for little kids kick ball. She did alot vacuuming and had do stairs. PT-OP-J Posture/Palpation/Skin Start: 12/03/24 08:46 Freq: Status: Active Protocol: Document 12/05/24 11:33 MB (Rec: 12/05/24 13:27 MB [id number]) Posture Evaluation Comments Posture Comments Standing posture with shoes doffed: forward and rounded shoulders and left shoulder is mildly higher than the right, increased thoracic kyphosis and sway back presentation, mild left thoracic convexity and left scapula is elevated and anterior compared to the right, left iliac crest is higher than the right Palpation Assessment Location Right shoulder and neck Palpation Details Increased tension right pect, infraspinatus, levator and upper traps, tenderness posterior right AC joint PT-OP-K Range of Motion Start: 12/03/24 08:46 Freq: Status: Active Protocol: Document 12/05/24 11:33 MB (Rec: 12/05/24 13:27 MB [id number]) Cervical Spine Range of Motion Cervical Spine Active Testing Position Standing Flexion 40 Extension 20 Rotation Left 50 Rotation Right 45 Shoulder Goniometric Range of Motion Shoulder Left Testing Position Standing Flexion 160 Abduction 153 Internal Rotation Behind Back (text) T9 Comments Normal passive ER and IR in supine with shoulder in 90/90 Right Testing Position Standing Flexion 145 Abduction 148 Internal Rotation Behind Back (text) T10 Comments Mildly reduced passive IR in supine with shoulder in 90/90, ER normal PT-OP-M Strength Start: 12/03/24 08:46 Freq: Status: Active Protocol: Document 12/05/24 11:33 MB (Rec: 12/05/24 13:27 MB [id number]) Shoulder Strength Shoulder Manual Muscle Testing Left Flexion 5 Normal Abduction (C5) 5 Normal External Rotation 5 Normal Internal Rotation 5 Normal Right Flexion 5 Normal Abduction (C5) 4+ Good+ External Rotation 5 Normal Internal Rotation 5 Normal Elbow/Forearm Strength Elbow and Forearm Manual Muscle Testing Left Flexion (C6) 5 Normal Extension (C7) 5 Normal Supination 4- Good- Right Flexion (C6) 5 Normal Extension (C7) 5 Normal Supination 4- Good- PT-OP-Q Treatments Start: 12/03/24 08:46 Freq: Status: Active Protocol: Document 01/18/25 13:05 SP (Rec: 01/18/25 13:49 SP Laptop) Therapeutic Exercises Standing Exercises Thoracic mobility of soft blue ball Standing Exercise Name HEP and handout Equipment Used blue kick ball Reps/Minutes 3min Comments Ball against wall today over posterior ribs and spine, mobility Scapular retraction and elbow extension Standing Exercise Name HEP reviewed Side bilateral Resistance Green band Reps/Minutes 2x10 Comments good form, no pain resposne ext, cued retraction and depression during rows Reverse fly Standing Exercise Name HEP and handout given Side bilateral Resistance Green band Reps/Minutes 10 reps Comments Cues to make w, core, posture, exercise is like have scap ret and half ER Shoulder ER Standing Exercise Name HEP and handout given Side bilateral Resistance Green band Reps/Minutes 10 reps Comments Cues for form, cue for posture , hitchiker thumb Row with arms straight Standing Exercise Name HEP and handout given Side bilateral Resistance Green band Reps/Minutes 10 reps Comments Cues for form, scapular retraction and core tight Other Exercises Thread Needle Other Exercise Name added to HEP with HO Side bilateral Reps/Minutes 5 reps Comments cued slow fluid movement, responds well feels good Child's Pose Other Exercise Name added to HEP with HO Equipment Used pillow under knees on table Reps/Minutes 2x30 sec Comments cues sit back toward heels and arms extended out front Therapeutic Activity Therapeutic Activity Vaccuming Name use trekpole Reps/Minutes 8 min total Comments body mechanics wt shift BLEs, loose RUE, upright posture, use smaller attachment for stairs. BUt willing to help, better self demo with LANDSCAPE ARCHITECTURE PROFESSOR/SPTA PT-OP-T Assessment and Plan Start: 12/03/24 08:46 Freq: Status: Active Protocol: Document 01/18/25 13:05 SP (Rec: 01/18/25 13:49 SP Laptop) Physical Therapy Assessment Goals 3 Impairment Reports of right shoulder pain awakening her multiple times at night Machine Bander And Cellophaner Goal (LTG) Pt will report a 90% improvement in right shoulder pain awakening her at night to improve sleep and restorative rest. 01/02/25: Pt reports a 70% improvement in right shoulder pain awakening her at night LTG Duration 8 weeks--progressing 2 Impairment Lack of HEP Machine Bander And Cellophaner Goal (LTG) Pt will perform progressive HEP with I including pelvic realignment, postural, ROM, self-mobilization and relaxation, range and strengthening exercises to improve pain and strength. 01/02/25: Pt reports she is performing most of her exercises at home LTG Duration 8 weeks--progressing 1 Impairment QuickDASH score reflects 31.81 % impairment Machine Bander And Cellophaner Goal (LTG) Pt will present with improved QuickDASH score reflecting no more than 10% impairment to improve quality of life. 01/02/25: QuickDASH score reflects 27.27% impairment LTG Duration 8 weeks-- slowly progressing Assessment Summary Assessment Pt responded well to ther ex, cues for set up and scap retraction with awareness of inferior glide and not pulling arms behind body at this time during rows. Progressed TS rotation and scap mobility for with decreased tension anterior R shld during child's pose and thread needle added to HEP today and provided HOs for carryover. Physical Therapy Plan Frequency and Duration Frequency of Treatment 2x/Week Duration of treatment (weeks) 8 Plan of Care Start Date 12/05/24 Plan of Care End Date 02/05/25 Therapeutic Interventions Therapeutic Interventions Balance Training,Canalithic Repositioning,Home Exercise Program,Joint Mobilizations, Manual Therapy,Neuromuscular Re-education,Patient/Caregiver Education,Self-Care/Home Management,Soft Tissue Mobilization,Taping, Therapeutic Activities, Therapeutic Exercises Modalities Cold Pack/Ice Massage,Electric Stimulation,Hot Packs, Traction- Mechanical Next Visit Focus/Plan Next Note Type Treatment Note Next Visit Plan Review exercises as needed, including newly added child's pose and thread needle. Con't manual work, consider another thoracic mobility exercise such as yoga pose ( mermaid vs sitting thoracic rotation side to side) and breathing and then extension with hands behind head, Next consider progressing to foam roller
--- NOTE | 2025-01-22 01:44 | PT.OTN ---
Current Diagnoses Other chronic pain (01/22/25) Pain in right shoulder (01/22/25) Physical Therapy Treatment Note PT-OP-A Visit Information Start: 12/03/24 08:46 Freq: Status: Active Protocol: Document 01/22/25 12:58 PG (Rec: 01/22/25 14:28 PG [id number]) Out-Patient Physical Therapy Visit Information Visit Information Visit Type Treatment Note Visit Note Medicare and [employer] Next progress note by 02/01/25 DIANA Jimenez assisted with ther ex instruction with pt while under direction instruction of DIANA Adams with permission of pt. Visit Start Time 01:02 Visit Stop Time 01:44 Visit Number 9 Number of MERCHANDISE CLERK Visits 2 Evaluation Information Evaluation Date 12/05/24 Precautions Precautions OP, orthostatic on eval, pt does not like to lie on floor, use yoga mat or do exercises on plinth PT-OP-B Current Condition Start: 12/03/24 08:46 Freq: Status: Active Protocol: Document 12/05/24 11:33 MB (Rec: 12/05/24 12:00 MB [id number]) Current Condition History of Current Condition Onset Date 11 years ago Current Complaints Right shoulder pain that wakes her up History of Current Condition Pt reports that 11 years ago this week, 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 She had tail of pancreas, spleen and 10 inches of colon also removed. She noticed her right shoulder was a problem at that time. Pt reports that she used to have a dog who also pulled on the leash and may have irritated her right shoulder. She is right handed. Pt reports right hip, knee and shoulder problem and plantar fasciitis on both feet. Pt reports history of 5 brain aneurysms and she had 2 brain stents in March of 2021 and April of 2021. She was dizzy beforehand. Pt uses lidocain patches on right arm. She sleeps on her side. Pt reports pain and tingling in right toe. Pt reports occ neck. Pt reports putting on bra and exercise bra in particular is challenging. She asks her a lot to open jars. Right reports occ numbness in right web of thumb/thenar eminence area. Treatment Goals Patient/Caregiver Goals To improve sleep and pain. PT-OP-C Subjective Start: 12/03/24 08:46 Freq: Status: Active Protocol: Document 01/22/25 12:58 PG (Rec: 01/22/25 14:28 PG [id number]) OP-PT Subjective Patient Comments Patient Comments Pt felt good but a little sore after previous tx session. Tried vacuuming stairs with mechanical applications engineer tips from the last PT session. Her arm was still a bit sore after vacuuming which seems to be a consistent trigger. She is still looking for a small ball to use for wall thoracic mobility. PT-OP-J Posture/Palpation/Skin Start: 12/03/24 08:46 Freq: Status: Active Protocol: Document 12/05/24 11:33 MB (Rec: 12/05/24 13:27 MB [id number]) Posture Evaluation Comments Posture Comments Standing posture with shoes doffed: forward and rounded shoulders and left shoulder is mildly higher than the right, increased thoracic kyphosis and sway back presentation, mild left thoracic convexity and left scapula is elevated and anterior compared to the right, left iliac crest is higher than the right Palpation Assessment Location Right shoulder and neck Palpation Details Increased tension right pect, infraspinatus, levator and upper traps, tenderness posterior right AC joint PT-OP-K Range of Motion Start: 12/03/24 08:46 Freq: Status: Active Protocol: Document 12/05/24 11:33 MB (Rec: 12/05/24 13:27 MB [id number]) Cervical Spine Range of Motion Cervical Spine Active Testing Position Standing Flexion 40 Extension 20 Rotation Left 50 Rotation Right 45 Shoulder Goniometric Range of Motion Shoulder Left Testing Position Standing Flexion 160 Abduction 153 Internal Rotation Behind Back (text) T9 Comments Normal passive ER and IR in supine with shoulder in 90/90 Right Testing Position Standing Flexion 145 Abduction 148 Internal Rotation Behind Back (text) T10 Comments Mildly reduced passive IR in supine with shoulder in 90/90, ER normal PT-OP-M Strength Start: 12/03/24 08:46 Freq: Status: Active Protocol: Document 12/05/24 11:33 MB (Rec: 12/05/24 13:27 MB [id number]) Shoulder Strength Shoulder Manual Muscle Testing Left Flexion 5 Normal Abduction (C5) 5 Normal External Rotation 5 Normal Internal Rotation 5 Normal Right Flexion 5 Normal Abduction (C5) 4+ Good+ External Rotation 5 Normal Internal Rotation 5 Normal Elbow/Forearm Strength Elbow and Forearm Manual Muscle Testing Left Flexion (C6) 5 Normal Extension (C7) 5 Normal Supination 4- Good- Right Flexion (C6) 5 Normal Extension (C7) 5 Normal Supination 4- Good- PT-OP-Q Treatments Start: 12/03/24 08:46 Freq: Status: Active Protocol: Document 01/22/25 12:58 PG (Rec: 01/22/25 14:28 PG [id number]) Therapeutic Exercises Supine Exercises Thoracic extension mobility Supine Exercise Name Trialed in PT Equipment Used Green 65cm ball (has at home) Reps/Minutes 3 min Comments Cued for head supported, pelvic lift, thoracic mobility Sidelying Exercises open book Sidelying Exercise Name Reviewed, recorded video on pt 's phone. Side bilateral Reps/Minutes 10x each side Comments Cued for following hand with eyes to optimize thoracic ROM Standing Exercises Thoracic mobility of soft blue ball Standing Exercise Name Reviewed Equipment Used blue kick ball Reps/Minutes 2 min Comments Good form Scapular retraction and elbow extension Standing Exercise Name Reviewed, recorded video on pt 's phone Side bilateral Resistance Green band Equipment Used staircase for tb anchor Reps/Minutes 2 x 10 Comments Cues for posture, core, scapular retraction Reverse fly Standing Exercise Name Reviewed, recorded video on pt 's phone Side bilateral Resistance Green band Equipment Used staircase for tb anchor Reps/Minutes 10 reps Comments Cues; arms away from body, posture, core Shoulder ER Standing Exercise Name Reviewed, recorded video on pt 's phone Side bilateral Resistance Green band (anchored by other hand) Reps/Minutes 10 reps each side Comments Cues; posture, core, thumb up hitchhiker Row with arms straight Standing Exercise Name Reviewed, recorded video on pt 's phone Side bilateral Resistance Green band Equipment Used staircase for tb anchor Reps/Minutes 10 reps Comments Cues; posture, core, scapular retraction, Other Exercises Thread Needle Other Exercise Name Reviewed Side bilateral Reps/Minutes 10 x 2 second hold, each side Comments Tactile and verbal cues for thoracic rot and arm lift twrd ceiling. Pn free Child's Pose Other Exercise Name Reviewed, recorded video with pt's phone Equipment Used pillow under knees on table Reps/Minutes 2x30 sec Comments cues; sit back twrd heels and bring chest to the bed, felt stretch in shldr PT-OP-T Assessment and Plan Start: 12/03/24 08:46 Freq: Status: Active Protocol: Document 01/22/25 12:58 PG (Rec: 01/22/25 14:28 PG [id number]) Physical Therapy Assessment Goals 3 Impairment Reports of right shoulder pain awakening her multiple times at night Radio Communications Superintendent Goal (LTG) Pt will report a 90% improvement in right shoulder pain awakening her at night to improve sleep and restorative rest. 01/02/25: Pt reports a 70% improvement in right shoulder pain awakening her at night LTG Duration 8 weeks--progressing 2 Impairment Lack of HEP Radio Communications Superintendent Goal (LTG) Pt will perform progressive HEP with I including pelvic realignment, postural, ROM, self-mobilization and relaxation, range and strengthening exercises to improve pain and strength. 01/02/25: Pt reports she is performing most of her exercises at home LTG Duration 8 weeks--progressing 1 Impairment QuickDASH score reflects 31.81 % impairment [facility] Goal (LTG) Pt will present with improved QuickDASH score reflecting no more than 10% impairment to improve quality of life. 01/02/25: QuickDASH score reflects 27.27% impairment LTG Duration 8 weeks-- slowly progressing Assessment Summary Assessment Pt responded well to ther ex and found exercises being recorded with cueing very helpful with carry over for performance at home. Instructed pt in using green exercise ball for thoracic mobility, while awaiting purchase of small ball. Reviewed needle thread and child's pose ex's, required verbal cues to increase stretch and mobility for proper form. Physical Therapy Plan Frequency and Duration Frequency of Treatment 2x/Week Duration of treatment (weeks) 8 Plan of Care Start Date 12/05/24 Plan of Care End Date 02/05/25 Therapeutic Interventions Therapeutic Interventions Balance Training,Canalithic Repositioning,Home Exercise Program,Joint Mobilizations, Manual Therapy,Neuromuscular Re-education,Patient/Caregiver Education,Self-Care/Home Management,Soft Tissue Mobilization,Taping, Therapeutic Activities, Therapeutic Exercises Modalities Cold Pack/Ice Massage,Electric Stimulation,Hot Packs, Traction- Mechanical Next Visit Focus/Plan Next Note Type Treatment Note Next Visit Plan Review exercises as needed, progress noodle ex's to foam roll. Supine thoracic ext on foam roll? Con't manual work, consider another thoracic mobility exercise such as yoga pose ( mermaid vs sitting thoracic rotation side to side) and breathing and then extension with hands behind head, Next consider progressing to foam roller
--- NOTE | 2025-01-24 13:44 | PT.OTN ---
Current Diagnoses Other chronic pain (01/24/25) Pain in right shoulder (01/24/25) Physical Therapy Treatment Note PT-OP-A Visit Information Start: 12/03/24 08:46 Freq: Status: Active Protocol: Document 01/24/25 13:01 PG (Rec: 01/24/25 14:27 PG [id number]) Out-Patient Physical Therapy Visit Information Visit Information Visit Type Treatment Note Visit Note Medicare and [employer] Next progress note by 02/01/25 DIANA Jimenez assisted with ther ex instruction with pt while under direction instruction of DIANA Adams with permission of pt. Visit Start Time 13:01 Visit Stop Time 13:44 Visit Number 10 Number of FOOTWEAR SALES REPRESENTATIVE Visits 3 Evaluation Information Evaluation Date 12/05/24 Precautions Precautions OP, orthostatic on eval, pt does not like to lie on floor, use yoga mat or do exercises on plinth PT-OP-B Current Condition Start: 12/03/24 08:46 Freq: Status: Active Protocol: Document 12/05/24 11:33 MB (Rec: 12/05/24 12:00 MB [id number]) Current Condition History of Current Condition Onset Date 11 years ago Current Complaints Right shoulder pain that wakes her up History of Current Condition Pt reports that 11 years ago this week, 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 She had tail of pancreas, spleen and 10 inches of colon also removed. She noticed her right shoulder was a problem at that time. Pt reports that she used to have a dog who also pulled on the leash and may have irritated her right shoulder. She is right handed. Pt reports right hip, knee and shoulder problem and plantar fasciitis on both feet. Pt reports history of 5 brain aneurysms and she had 2 brain stents in March of 2021 and April of 2021. She was dizzy beforehand. Pt uses lidocain patches on right arm. She sleeps on her side. Pt reports pain and tingling in right toe. Pt reports occ neck. Pt reports putting on bra and exercise bra in particular is challenging. She asks her a lot to open jars. Right reports occ numbness in right web of thumb/thenar eminence area. Treatment Goals Patient/Caregiver Goals To improve sleep and pain. PT-OP-C Subjective Start: 12/03/24 08:46 Freq: Status: Active Protocol: Document 01/24/25 13:01 PG (Rec: 01/24/25 14:27 PG [id number]) OP-PT Subjective Patient Comments Patient Comments Pt had mammograms' and dexascan yesterday, thinks those appointments may have irritated R shoulder and up through neck. woke up multiple times throughout the night. Was not able to do HEP yesterday. PT-OP-J Posture/Palpation/Skin Start: 12/03/24 08:46 Freq: Status: Active Protocol: Document 12/05/24 11:33 MB (Rec: 12/05/24 13:27 MB [id number]) Posture Evaluation Comments Posture Comments Standing posture with shoes doffed: forward and rounded shoulders and left shoulder is mildly higher than the right, increased thoracic kyphosis and sway back presentation, mild left thoracic convexity and left scapula is elevated and anterior compared to the right, left iliac crest is higher than the right Palpation Assessment Location Right shoulder and neck Palpation Details Increased tension right pect, infraspinatus, levator and upper traps, tenderness posterior right AC joint PT-OP-K Range of Motion Start: 12/03/24 08:46 Freq: Status: Active Protocol: Document 12/05/24 11:33 MB (Rec: 12/05/24 13:27 MB [id number]) Cervical Spine Range of Motion Cervical Spine Active Testing Position Standing Flexion 40 Extension 20 Rotation Left 50 Rotation Right 45 Shoulder Goniometric Range of Motion Shoulder Left Testing Position Standing Flexion 160 Abduction 153 Internal Rotation Behind Back (text) T9 Comments Normal passive ER and IR in supine with shoulder in 90/90 Right Testing Position Standing Flexion 145 Abduction 148 Internal Rotation Behind Back (text) T10 Comments Mildly reduced passive IR in supine with shoulder in 90/90, ER normal PT-OP-M Strength Start: 12/03/24 08:46 Freq: Status: Active Protocol: Document 12/05/24 11:33 MB (Rec: 12/05/24 13:27 MB [id number]) Shoulder Strength Shoulder Manual Muscle Testing Left Flexion 5 Normal Abduction (C5) 5 Normal External Rotation 5 Normal Internal Rotation 5 Normal Right Flexion 5 Normal Abduction (C5) 4+ Good+ External Rotation 5 Normal Internal Rotation 5 Normal Elbow/Forearm Strength Elbow and Forearm Manual Muscle Testing Left Flexion (C6) 5 Normal Extension (C7) 5 Normal Supination 4- Good- Right Flexion (C6) 5 Normal Extension (C7) 5 Normal Supination 4- Good- PT-OP-Q Treatments Start: 12/03/24 08:46 Freq: Status: Active Protocol: Document 01/24/25 13:01 PG (Rec: 01/24/25 14:27 PG [id number]) Therapeutic Exercises Supine Exercises pec stretch Supine Exercise Name Reviewed on foam roll Side bilateral Equipment Used foam roll Reps/Minutes 30 seconds Comments tolerated well Noodle exercises Supine Exercise Name FF, abduction, scaption replaced noodle with foam roll ; provided HO. Side bilateral Resistance Green TB Equipment Used Foam roll, green TB Reps/Minutes x10 each Comments vc's for core engagement, tolerated well with pn free range Standing Exercises Thoracic mobility of soft blue ball Standing Exercise Name Reviewed to help self massage after ex's on foam roll. Equipment Used blue kick ball Reps/Minutes 1 minute Comments Good form Scapular retraction and elbow extension Standing Exercise Name Reviewed Side bilateral Resistance Level 3 band on wall Reps/Minutes 10 reps Comments V/c's for posture and chin tuck, tactile for scap retraction Reverse fly Standing Exercise Name Reviewed Side bilateral Resistance Level 3 green band on wall Reps/Minutes 10 reps Comments V/c's for posture and chin tuck, tactile for scap retraction Shoulder ER Standing Exercise Name Reviewed Side bilateral Resistance Level 3 green band on wall Reps/Minutes 10 reps each side Comments V/c's for posture, core and chin tuck Row with arms straight Standing Exercise Name Reviewed Side bilateral Resistance Level 3 green band on wall Reps/Minutes 10 reps Comments V/c's for posture and chin tuck, tactile for scap retraction Manual Therapy Treatment Consent Patient gave verbal consent for manual Yes treatment Other Other Manual Treatments STM to R UT, LS, supraspinatus , c/s paraspinals PT-OP-T Assessment and Plan Start: 12/03/24 08:46 Freq: Status: Active Protocol: Document 01/24/25 13:01 PG (Rec: 01/24/25 14:27 PG [id number]) Physical Therapy Assessment Goals 3 Impairment Reports of right shoulder pain awakening her multiple times at night Nursing Home Goal (LTG) Pt will report a 90% improvement in right shoulder pain awakening her at night to improve sleep and restorative rest. 01/02/25: Pt reports a 70% improvement in right shoulder pain awakening her at night LTG Duration 8 weeks--progressing 2 Impairment Lack of HEP Pattern Clerk Goal (LTG) Pt will perform progressive HEP with I including pelvic realignment, postural, ROM, self-mobilization and relaxation, range and strengthening exercises to improve pain and strength. 01/02/25: Pt reports she is performing most of her exercises at home LTG Duration 8 weeks--progressing 1 Impairment QuickDASH score reflects 31.81 % impairment Pattern Clerk Goal (LTG) Pt will present with improved QuickDASH score reflecting no more than 10% impairment to improve quality of life. 01/02/25: QuickDASH score reflects 27.27% impairment LTG Duration 8 weeks-- slowly progressing Assessment Summary Assessment Pt responded well to pool noodle ex's on foam roller with added resistance band to strengthen the posterior postural muscles for improved posture. Provided HO for pool noodle ex reminder. Continued reviewing standing scap retraction ex's, using v/ c's for posture awareness. Physical Therapy Plan Frequency and Duration Frequency of Treatment 2x/Week Duration of treatment (weeks) 8 Plan of Care Start Date 12/05/24 Plan of Care End Date 02/05/25 Therapeutic Interventions Therapeutic Interventions Balance Training,Canalithic Repositioning,Home Exercise Program,Joint Mobilizations, Manual Therapy,Neuromuscular Re-education,Patient/Caregiver Education,Self-Care/Home Management,Soft Tissue Mobilization,Taping, Therapeutic Activities, Therapeutic Exercises Modalities Cold Pack/Ice Massage,Electric Stimulation,Hot Packs, Traction- Mechanical Next Visit Focus/Plan Next Note Type Treatment Note Next Visit Plan Review exercises as needed, trial if ready for functional tasks overhead and standing. Con't manual work, consider another thoracic mobility exercise such as yoga pose ( mermaid vs sitting thoracic rotation side to side) and breathing and then extension with hands behind head, Next consider progressing to foam roller
--- NOTE | 2025-01-30 13:16 | PT.OTN ---
Current Diagnoses Other chronic pain (01/30/25) Pain in right shoulder (01/30/25) Physical Therapy Treatment Note PT-OP-A Visit Information Start: 12/03/24 08:46 Freq: Status: Active Protocol: Document 01/30/25 13:00 MB (Rec: 01/30/25 13:16 MB Desktop) Out-Patient Physical Therapy Visit Information Visit Information Visit Type Treatment Note Visit Start Time 13:00 Visit Stop Time 13:15 Visit Number 11 Number of ARM REST BUILDER Visits 0 Evaluation Information Evaluation Date 12/05/24 Precautions Precautions OP, orthostatic on eval, pt does not like to lie on floor, use yoga mat or do exercises on plinth PT-OP-B Current Condition Start: 12/03/24 08:46 Freq: Status: Active Protocol: Document 12/05/24 11:33 MB (Rec: 12/05/24 12:00 MB [id number]) Current Condition History of Current Condition Onset Date 11 years ago Current Complaints Right shoulder pain that wakes her up History of Current Condition Pt reports that 11 years ago this week, 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 She had tail of pancreas, spleen and 10 inches of colon also removed. She noticed her right shoulder was a problem at that time. Pt reports that she used to have a dog who also pulled on the leash and may have irritated her right shoulder. She is right handed. Pt reports right hip, knee and shoulder problem and plantar fasciitis on both feet. Pt reports history of 5 brain aneurysms and she had 2 brain stents in March of 2021 and April of 2021. She was dizzy beforehand. Pt uses lidocain patches on right arm. She sleeps on her side. Pt reports pain and tingling in right toe. Pt reports occ neck. Pt reports putting on bra and exercise bra in particular is challenging. She asks her a lot to open jars. Right reports occ numbness in right web of thumb/thenar eminence area. Treatment Goals Patient/Caregiver Goals To improve sleep and pain. PT-OP-C Subjective Start: 12/03/24 08:46 Freq: Status: Active Protocol: Document 01/30/25 13:00 MB (Rec: 01/30/25 13:16 MB Desktop) OP-PT Subjective Patient Comments Patient Comments Pt had a fall yesterday off the second to the last step and she hit her right shoulder and foot. She sees her doctor on Wednesday anyway and today is her last scheduled PT appointment. She was doing a lot better and then had the fall yesterday. PT-OP-J Posture/Palpation/Skin Start: 12/03/24 08:46 Freq: Status: Active Protocol: Document 12/05/24 11:33 MB (Rec: 12/05/24 13:27 MB [id number]) Posture Evaluation Comments Posture Comments Standing posture with shoes doffed: forward and rounded shoulders and left shoulder is mildly higher than the right, increased thoracic kyphosis and sway back presentation, mild left thoracic convexity and left scapula is elevated and anterior compared to the right, left iliac crest is higher than the right Palpation Assessment Location Right shoulder and neck Palpation Details Increased tension right pect, infraspinatus, levator and upper traps, tenderness posterior right AC joint PT-OP-K Range of Motion Start: 12/03/24 08:46 Freq: Status: Active Protocol: Document 12/05/24 11:33 MB (Rec: 12/05/24 13:27 MB [id number]) Cervical Spine Range of Motion Cervical Spine Active Testing Position Standing Flexion 40 Extension 20 Rotation Left 50 Rotation Right 45 Shoulder Goniometric Range of Motion Shoulder Left Testing Position Standing Flexion 160 Abduction 153 Internal Rotation Behind Back (text) T9 Comments Normal passive ER and IR in supine with shoulder in 90/90 Right Testing Position Standing Flexion 145 Abduction 148 Internal Rotation Behind Back (text) T10 Comments Mildly reduced passive IR in supine with shoulder in 90/90, ER normal PT-OP-M Strength Start: 12/03/24 08:46 Freq: Status: Active Protocol: Document 12/05/24 11:33 MB (Rec: 12/05/24 13:27 MB [id number]) Shoulder Strength Shoulder Manual Muscle Testing Left Flexion 5 Normal Abduction (C5) 5 Normal External Rotation 5 Normal Internal Rotation 5 Normal Right Flexion 5 Normal Abduction (C5) 4+ Good+ External Rotation 5 Normal Internal Rotation 5 Normal Elbow/Forearm Strength Elbow and Forearm Manual Muscle Testing Left Flexion (C6) 5 Normal Extension (C7) 5 Normal Supination 4- Good- Right Flexion (C6) 5 Normal Extension (C7) 5 Normal Supination 4- Good- PT-OP-Q Treatments Start: 12/03/24 08:46 Freq: Status: Active Protocol: Document 01/30/25 13:00 MB (Rec: 01/30/25 13:16 MB Desktop) Self-Care/Home Management Treatment Education Patient Education Body Mechanics,Fall Risk,Home Exercise Program,Joint Protection,Pain Management, Safety Caregiver Education Ed pt in icing right shoulder, following up with doctor after fall, con't exercise if pain-free as she recovers, d/c PT PT-OP-T Assessment and Plan Start: 12/03/24 08:46 Freq: Status: Active Protocol: Document 01/30/25 13:00 MB (Rec: 01/30/25 13:16 MB Desktop) Physical Therapy Assessment Goals 3 Impairment Reports of right shoulder pain awakening her multiple times at night Database Specialist Goal (LTG) Pt will report a 90% improvement in right shoulder pain awakening her at night to improve sleep and restorative rest. 01/02/25: Pt reports a 70% improvement in right shoulder pain awakening her at night 01/30/25: Before fall last date , pt was up to 80% improved in sleeping d/t right shoulder pain LTG Duration 8 weeks--progressing 2 Impairment Lack of HEP Database Specialist Goal (LTG) Pt will perform progressive HEP with I including pelvic realignment, postural, ROM, self-mobilization and relaxation, range and strengthening exercises to improve pain and strength. 01/02/25: Pt reports she is performing most of her exercises at home 01/30/25: Pt is performing most of her exercises at home home since she is feeling well LTG Duration 8 weeks--progressing 1 Impairment QuickDASH score reflects 31.81 % impairment Longterm Goal (LTG) Pt will present with improved QuickDASH score reflecting no more than 10% impairment to improve quality of life. 01/02/25: QuickDASH score reflects 27.27% impairment 01/30/25: Pt to rate before fall yesterday: 22.72%, indicating mild improvement since progress note LTG Duration 8 weeks-- slowly progressing Assessment Summary Assessment Today was pt's last scheduled appointment and she has been ready to d/c. She had a fall off step yesterday and is seeing her doctor at the end of the week and so recommend physician assess her pain in right anterior shoulder and foot at that time. She has progressed towards QuickDASH and HEP goals and is ready to d/c PT. She can return to PT as needed in the future. Physical Therapy Plan Other Referrals/Consults Referrals/Consults Recommended Follow-up with PCP after fall last date and striking right shoulder
== END 2025-01-31 13:36 | disposition home or self-care (01) ==
LOC: PHYS 13:00
PROVIDERS: Family Provider Family Medicine; PCP Family Medicine; Referring Provider Family Medicine; Visit Provider Family Medicine
DX: M25.511 Pain in right shoulder (principal); G89.29 Other chronic pain
CPT/HCPCS: 97110; 97140; 97161; 97535

== ENCOUNTER → 2025-02-02 | Outpatient (CLI) | payer MEDICARE, OTHER, SELFPAY ==
--- NOTE | 2025-02-02 11:37 | DI.RAD.S_ITS ---
PROCEDURE: XR SHOULDER RT MIN 2V INDICATIONS: Shoulder pain, wrist pain TECHNIQUE: 3 views of the shoulder were acquired. COMPARISON: [facility], CR, XR SHOULDER RT MIN 2V, 10/31/2024, 7:10. FINDINGS: Bones: No fractures or dislocations. The humeral head is mildly high-riding. Mild to moderate glenohumeral joint space narrowing and marginal osteophytosis and moderate hypertrophic acromioclavicular arthropathy is noted. No suspicious bony lesions. Visualized ribs appear intact. Soft tissues: No suspicious soft tissue calcifications. IMPRESSION: Degenerative change of the glenohumeral and acromioclavicular joints without evidence of acute bony abnormality. Dictated by: Anderson Cosby M.D. on 02/04/2025 at 0:26 Approved by: Anderson Cosby M.D. on 02/04/2025 at 0:27
--- NOTE | 2025-02-02 11:37 | DI.RAD.S_ITS ---
PROCEDURE: XR WRIST RT MIN 3V INDICATIONS: PAIN TECHNIQUE: 4 views of the wrist were acquired. COMPARISON: None. FINDINGS: Bones: No fractures or dislocations. No suspicious bony lesions. Soft tissues: No suspicious soft tissue calcifications. IMPRESSION: No acute bony abnormality. Dictated by: Anderson Cosby M.D. on 02/04/2025 at 0:22 Approved by: Anderson Cosby M.D. on 02/04/2025 at 0:22
== END ==
PROVIDERS: Family Provider Family Medicine; PCP Family Medicine; Referring Provider Family Medicine; Visit Provider Family Medicine
DX: M19.011 Primary osteoarthritis, right shoulder (principal); M25.531 Pain in right wrist; M25.511 Pain in right shoulder
CPT/HCPCS: 73030; 73110

== ENCOUNTER → 2025-02-06 07:39 | Outpatient (CLI) | payer MEDICARE, OTHER, SELFPAY ==
[2025-02-06 08:44] LABS: Hemoglobin A1C% w Est Avg Glu 5.6 % (4.0-6.0)
[2025-02-06 08:51] LABS: Alanine Aminotransferase 25 IU/L (<35); Albumin 4.2 g/dL (3.5-5.0); Albumin Globulin Ratio 1.5 (1.0-2.8); Alkaline Phosphatase 50 U/L (38-126); Aspartate Aminotransferase 37 IU/L (14-36); Bilirubin Total 0.7 mg/dL (0.2-1.3); Blood Urea Nitrogen 18 mg/dL (7-17); Calcium 9.5 mg/dL (8.4-10.2); Carbon Dioxide 24 mmol/L (22-32); Chloride 108 mmol/L (98-107); Cholesterol 243 mg/dL (140-199); Estimated Glomerular Filt Rate > 60 mL/min (>60); Globulin 2.8 g/dL (1.7-4.1); Glucose 102 mg/dL (70-99); HDL Cholesterol 50 mg/dL (40-60); HEMOLYSIS < 15 (0-50); LDL Cholesterol Calculated 173 mg/dL (<100); Potassium 4.4 mmol/L (3.4-5.1); Sodium 140 mmol/L (137-145); Triglycerides 100 mg/dL (35-150)
[2025-02-06 09:04] LABS: Vitamin D 25 Hydroxy (D3) 120 ng/mL (30.0-100.0)
[2025-02-07 19:11] LABS: Calcium 8.2 mg/dL (8.7-10.3); Parathyroid Hormone, Intact 23 pg/mL (15-65)
== END ==
LOC: LAB 07:40
PROVIDERS: Family Provider Family Medicine; PCP Family Medicine; Referring Provider Family Medicine; Visit Provider Family Medicine
DX: Z13.6 Encounter for screening for cardiovascular disorders (principal); R73.03 Prediabetes; M81.0 Age-related osteoporosis without current pathological fracture; R01.1 Cardiac murmur, unspecified; E21.5 Disorder of parathyroid gland, unspecified; E04.1 Nontoxic single thyroid nodule
CPT/HCPCS: 36415; 80053; 80061; 82306; 82310; 83036; 83970

== ENCOUNTER → 2025-03-01 10:12 | Outpatient (CLI) | payer MEDICARE, OTHER, SELFPAY ==
--- NOTE | 2025-03-01 10:14 | DI.MG.S_ITS ---
MM diagnostic mammo unilat RT, US breast RT limited: 03/01/2025 BI-RADS: 3 CLINICAL: 69-year old female for right diagnostic mammogram and right diagnostic breast ultrasound that is a recall from screening on 01/23/2025. Tyrer-Cuzick lifetime risk of 6.1%. No personal or first-degree family history of breast cancer. PRIOR EXAMS Mammogram(s): 01/23/2025. Four Other Exams on 01/12/2024, 01/07/2023, 12/20/2020, 05/13/2015. MAMMOGRAPHY TECHNIQUE: 2D and 3D (tomosynthesis) digital mammographic views obtained, with additional images as needed for full coverage. Current study was also evaluated with a Computer Aided Detection (CAD) system. ULTRASOUND TECHNIQUE: Real-time foreman scale and color doppler imaging of the area of clinical interest was performed with image documentation. TARGETED Right Breast Ultrasound: Real-time ultrasound exam was performed focused to area of clinical and/or imaging concern. DENSITY Right: C. The breasts are heterogeneously dense, which may obscure small masses. MAMMOGRAPHY FINDINGS Right (finding-1): Upper Inner Quadrant, Middle depth, measuring 0.8cm: Correlating with findings on screening mammogram, there is a focal asymmetry present. ULTRASOUND FINDINGS Right (finding-1): Upper Inner at 1:00, 7 cm from nipple, measuring 0.8 x 0.8 x 0.5 cm: Correlating with findings on mammogram there are clustered microcysts showing posterior acoustic enhancement. Doppler shows no vascularity. IMPRESSION: Right (Simple Cyst): Upper Inner at 1:00, 7 cm from nipple, measuring 0.8 x 0.8 x 0.5 cm * Probably Benign. RECOMMENDATIONS Right: Upper Inner at 1:00, 7 cm from nipple * Six month followup with diagnostic mammography and diagnostic ultrasound. COMMENTS: Findings and recommendations were conveyed to the patient during today's evaluation. OVERALL ASSESSMENT CATEGORY BI-RADS-3: Probably Benign. ELECTRONICALLY SIGNED: Rufus Valentin M.D. on 03/01/2025 at 04:46:45 PM PT Interpreting Station ID: [id number]
== END ==
PROVIDERS: Family Provider Family Medicine; PCP Family Medicine; Referring Provider Family Medicine; Visit Provider Family Medicine
DX: R92.8 Other abnormal and inconclusive findings on diagnostic imaging of breast (principal); R92.331 Mammographic heterogeneous density, right breast; N60.01 Solitary cyst of right breast
CPT/HCPCS: 76642; 77065; G0279

== ENCOUNTER → 2025-07-05 13:03 | Outpatient (CLI) | payer MEDICARE, OTHER, SELFPAY ==
--- NOTE | 2025-07-05 13:09 | DI.CT.S_ITS ---
PROCEDURE: CT SOFT TISSUE NECK WO/W CON INDICATIONS: parathyroid TECHNIQUE: Before and after the administration of intravenous contrast, 2.0 mm axial sections acquired through the neck and down to the fallon. Additional 2.0 mm coronal and sagittal reformats were generated of the contrast enhanced images. For radiation dose reduction, the following was used: automated exposure control. COMPARISON: [facility], , US THYROID, 08/09/2024, 12:21. FINDINGS: Image quality: There is artifact associated with the metallic dental work. Artifact from the metallic hardware is reduced by metal reconstruction algorithm. Parathyroid: No definite parathyroid nodules are seen. Thyroid: In this patient with this given history, scrutiny is given to superior posterior aspect of the thyroid. At this site, there is a nodule seen, which appears contiguous with the thyroid itself, which is relatively low density compared to the adjacent normal thyroid gland, as on series 2, image 58 and on series 3, image 58, measuring 11 x 8 mm in greatest axial dimension, with a craniocaudal extent of 13 mm. The thyroid demonstrates diffuse heterogeneity. Lymph nodes: No enlarged lymph nodes seen throughout the neck. Vessels: Visualized vasculature appears patent. Neck spaces: The oropharynx, nasopharynx, and pharynx demonstrate no mucosal lesions. The vocal cords, false vocal cords, pyriform sinuses, epiglottis, vallecula, and tongue base all appear normal. Extramucosal spaces appear unremarkable. Glands: The parotid and submandibular glands appear normal. Miscellaneous: Visualized lungs appear clear. Superficial soft tissues appear normal. Bones: No suspicious bony lesions. Visualized sinuses and mastoids appear unremarkable. IMPRESSION: At the superior posterior aspect of the thyroid, there is a focus seen, which appears contiguous with the thyroid itself and is most likely related to an exophytic thyroid nodule. Differential diagnosis includes a parathyroid nodule, yet this is considered to be less likely based upon the CT appearance. Please correlate with biochemical findings of parathyroid adenoma. Dictated by: Rocky Alfaro M.D. on 07/05/2025 at 15:57 Transcribed by: MIN on 07/05/2025 at 16:05 Approved by: Rocky Alfaro M.D. on 07/05/2025 at 16:20
[2025-07-05 13:46] LABS: Alanine Aminotransferase 24 IU/L (<35); Albumin 4.3 g/dL (3.5-5.0); Albumin Globulin Ratio 1.3 (1.0-2.8); Alkaline Phosphatase 58 U/L (38-126); Blood Urea Nitrogen 13 mg/dL (7-17); Calcium 9.1 mg/dL (8.4-10.2); Carbon Dioxide 23 mmol/L (22-32); Chloride 109 mmol/L (98-107); Estimated Glomerular Filt Rate > 60 mL/min (>60); Globulin 3.3 g/dL (1.7-4.1); Glucose 163 mg/dL (70-99); HEMOLYSIS < 15 (0-50); Potassium 3.9 mmol/L (3.4-5.1); Sodium 140 mmol/L (137-145); Total Protein 7.6 g/dL (6.3-8.2)
[2025-07-05 13:52] LABS: Add Manual Diff / Slide Review NO; Hematocrit 38.2 % (36-46); Hemoglobin 13.0 g/dL (12.0-16.0); Lymphocytes Absolute Auto 2400 /uL (1100-4500); Mean Corpuscular HGB Conc 34.0 % (30-36); Mean Corpuscular Hemoglobin 32.3 PG (26-34); Mean Corpuscular Volume 94.8 fL (80-100); Platelet Count 239 X10^3/uL (150-400)
[2025-07-05 14:10] LABS: Hemoglobin A1C% w Est Avg Glu 6.0 % (4.0-6.0)
[2025-07-05 14:48] LABS: Vitamin D 25 Hydroxy (D3) 78.6 ng/mL (30.0-100.0)
== END ==
PROVIDERS: Family Provider Family Medicine; PCP Family Medicine; Referring Provider Family Medicine; Visit Provider Family Medicine
DX: E21.5 Disorder of parathyroid gland, unspecified (principal); R73.03 Prediabetes; E04.1 Nontoxic single thyroid nodule; Z82.49 Family history of ischemic heart disease and other diseases of the circulatory system; I25.10 Atherosclerotic heart disease of native coronary artery without angina pectoris; E78.5 Hyperlipidemia, unspecified; Z12.9 Encounter for screening for malignant neoplasm, site unspecified
CPT/HCPCS: 36415; 70492; 80053; 82306; 82397; 83036; 85025; Q9967

== ENCOUNTER → 2025-09-05 10:15 | Outpatient (CLI) | payer MEDICARE, OTHER, SELFPAY ==
--- NOTE | 2025-09-05 10:18 | DI.US.S_ITS ---
MM diagnostic mammo unilat RT, US breast RT limited: 09/05/2025 BI-RADS: 2 CLINICAL: 70-year old female for right diagnostic mammogram and right diagnostic breast ultrasound. The patient presents for a follow-up. Tyrer-Cuzick lifetime risk of 5.8%. No personal or first-degree family history of breast cancer. PRIOR EXAMS 03/01/2025, 01/23/2025, 01/12/2024, 01/07/2023. MAMMOGRAPHY TECHNIQUE: 2D and 3D (tomosynthesis) digital mammographic views obtained, with additional images as needed for full coverage. Current study was also evaluated with a Computer Aided Detection (CAD) system. ULTRASOUND TECHNIQUE Real-time foreman scale and color doppler imaging of the area of clinical interest was performed with image documentation. Right targeted breast ultrasound of the area of clinical interest and the axilla was performed with image documentation. DENSITY Right: C. The breast is heterogeneously dense, which may obscure small masses. MAMMOGRAPHY FINDINGS Right (finding-1): Upper Inner at 1:00, Middle depth, measuring 0.8cm: Correlating with prior imaging concern, there is a stable focal asymmetry present. ULTRASOUND FINDINGS Right (finding-1): Upper Inner at 1:00, 7 cm from nipple, measuring 0.7 x 0.8 x 0.4 cm - previously measuring (03/01/2025) 0.8 x 0.8 x 0.5 cm: Correlating with findings on mammogram and prior imaging concern, there are clustered microcysts. Doppler shows no vascularity. Right: Axilla: No abnormal lymph nodes are seen in the axilla. IMPRESSION: Right * No evidence of malignancy with benign findings. RECOMMENDATIONS Bilateral * Annual screening mammography (due January 2026). COMMENTS: Findings and recommendations were conveyed to the patient during today's evaluation. OVERALL ASSESSMENT CATEGORY BI-RADS-2: Benign. The [employer] recommends annual screening mammography beginning at age 40 for women with average risk of breast cancer. ELECTRONICALLY SIGNED: Migdalia Rosen M.D. on 09/05/2025 at 11:18:28 AM PT Interpreting Station ID: [id number]
== END ==
LOC: MAMMO 10:18
PROVIDERS: Family Provider Family Medicine; PCP Family Medicine; Referring Provider Family Medicine; Visit Provider Family Medicine
DX: R92.8 Other abnormal and inconclusive findings on diagnostic imaging of breast (principal); R92.331 Mammographic heterogeneous density, right breast
CPT/HCPCS: 76642; 77065; G0279